=== PATIENT | female | born 1980 | race Caucasian/White ===

== ENCOUNTER 2021-11-01 08:24 | Emergency (ER) | payer BC, SELFPAY ==
[2021-11-01 08:36] VITALS: BP 118/79; PULSE 71; RESP 20; TEMP 36.8; O2SAT 99
--- NOTE | 2021-11-01 09:06 | ED.EAR ---
HPI - Ear Problem General Chief complaint: Ear Stated complaint: Ear Pain Time Seen by Provider: 11/01/21 09:06 Source: patient Mode of arrival: ambulatory Limitations: no limitations History of Present Illness HPI Narrative: 41-year-old female presenting for complaint of right ear pain for 3 days. She endorses associated sinus pressure and congestion, and hoarse voice starting this morning. Pain is described as sharp and shooting, 7/10, intermittent. She has been taking Motrin and Sudafed. She takes daily Zyrtec. She denies tenderness, headache or dizziness, nausea, fevers or chills. MD Complaint: ear pain Related Data Allergies Allergy/AdvReac Type Severity Reaction Status Date / Time amoxicillin Allergy Unknown Swelling Verified 11/01/21 08:57 of Lip/Tongue/Throat Penicillins Allergy Unknown Swelling Verified 11/01/21 08:57 of Lip/Tongue/Throat Review of Systems Review of Systems: CONSTITUTIONAL: Denies malaise, chills, or fever. EYES: Denies visual changes, redness, or discharge. ENT: Denies sinus pain, sore throat. Reports ear pain, rhinorrhea, congestion CARDIOVASCULAR: Denies chest pain, palpitations, or edema. RESPIRATORY: Denies cough or dyspnea. GASTROINTESTINAL: Denies abdominal pain, nausea, vomiting, diarrhea SKIN: Denies rash or itching. MUSCULOSKELETAL: Denies myalgia. NEUROLOGIC: Denies headache. All systems reviewed & are unremarkable except as noted in HPI and below PMFSH Comments At time of signature, agree with nursing past medical, surgical, social and family history. There is no relevant family history pertinent to the presenting complaint Exam Narrative: GENERAL: Well-appearing EYES: conjunctivae clear ENT: Nares clear. Mucous membranes moist. Right canal erythematous, TM bulging and erythematous with dull reflex, mild tragal tenderness, left TM pearly tomlin with normal light reflex, Oropharynx not erythematous. Hoarse voice, tonsils chronically enlarged and without exudate, no drooling, no trismus, uvula midline. NECK: Supple. No lymphadenopathy CHEST: Clear to auscultation, breath sounds equal. No wheezing, rhonchi, rales, or stridor. No respiratory distress, speaks in full sentences. HEART: Regular rate and rhythm. No murmur heard. SKIN: Warm, dry, no rash. NEURO: Alert and oriented x3. PSYCH: Normal mood and affect Course Course Emergency Course: Patient is aware of diagnosis, understands and agrees to treatment plan. Anticipatory guidance given. Patient agrees to follow-up as directed and is aware of reasons to seek care at the emergency department. Portions of this record may have been created with voice recognition software Level of Care: Express Care Visit Vital Signs Vital signs: Vital Signs Temperature 98.3 F 11/01/21 08:36 Pulse Rate 71 11/01/21 08:36 Respiratory Rate 20 11/01/21 08:36 Blood Pressure 118/79 11/01/21 08:36 Pulse Oximetry 99 11/01/21 08:36 Oxygen Delivery Room Air 11/01/21 08:36 Temperature 98.3 F 11/01/21 08:36 Pulse Rate 71 11/01/21 08:36 Respiratory Rate 20 11/01/21 08:36 Blood Pressure 118/79 11/01/21 08:36 Pulse Oximetry 99 11/01/21 08:36 Oxygen Delivery Room Air 11/01/21 08:36 Reviewed Medical Decision Making MDM Narrative Medical decision making narrative: patient is non-toxic appearing and is in no distress. Patient is appropriate for outpatient treatment and follow-up. Differential Diagnosis Differential Diagnosis: allergic rhinitis, upper respiratory tract infection, sinusitis, rhinosinusitis, nasopharyngitis, viral pharyngitis, otitis media, otitis externa, eustachian tube dysfunction, foreign body, cerumen impaction. Vital Signs Vital Signs: Vital Signs Temperature 98.3 F 11/01/21 08:36 Pulse Rate 71 11/01/21 08:36 Respiratory Rate 20 11/01/21 08:36 Blood Pressure 118/79 11/01/21 08:36 Pulse Oximetry 99 11/01/21 08:36 Oxygen Delivery Room Air 07/
== END 2021-11-01 09:18 | disposition home or self-care (01) ==
PROVIDERS: Emergency Provider Nurse Practitioner Family
DX: H66.001 Acute suppurative otitis media without spontaneous rupture of ear drum, right ear (principal); F41.9 Anxiety disorder, unspecified
CPT/HCPCS: 99203; G0463

== ENCOUNTER 2022-12-20 18:40 | Emergency (ER) | payer BC, SELFPAY ==
--- NOTE | 2022-12-20 18:49 | ED.URI ---
HPI - URI/Sore Throat General Chief Complaint: Upper Respiratory Infection Stated Complaint: sore throat,raspy,rt ear hurts Source: patient and RN notes reviewed History of Present Illness HPI Narrative: 42 yo F presents to urgent care with complaints of right ear pain, sore/scratchy throat, hoarse voice, and runny nose since . Pt denies any chest pain, SOB, fevers, chills, vomiting, or diarrhea. Related Data Home Medications Medication Instructions Recorded Confirmed No Home Medications 12/20/22 12/20/22 Allergies Allergy/AdvReac Type Severity Reaction Status Date / Time amoxicillin Allergy Unknown Swelling Verified 12/20/22 19:02 of Lip/Tongue/Throat Penicillins Allergy Unknown Swelling Verified 12/20/22 19:02 of Lip/Tongue/Throat Review of Systems Review of Systems: Pertinent positives and pertinent negatives per HPI. [facility] Surgical History Surgical History (Updated 10/29/22 @ 08:19 by Bina Vega CMA) S/P gastric sleeve procedure Social History Social History (Updated 10/29/22 @ 08:19 by Bina Vega [facility]) Smoking status: Never smoker Alcohol intake: never Substance use: never Lack of Transportation: No Lack of Food: Never True Current Housing: I Have Housing Concerned About Future Housing: No Difficulty Paying Gas/Electric Bills: No Difficulty Paying for Meds: No Currently Unemployed: No Education: High School Diploma/GED Difficulty w/ Childcare or Family Care: No Living arrangements: alone Occupation/Education: occupation Additional occupation/education comments: [employer] Comments At the time of my signature, I reviewed and agree with the nursing past medical, surgical, social, and family history. There is no relevant family history pertinent to the patient complaint. Exam Narrative: GENERAL: This is a well-nourished, well-developed patient, in no apparent distress. HEAD: normocephalic, atraumatic. EYES: Sclera clear/white. Vision is grossly intact. EARS: External ears normal, auditory canals clear and without drainage, TMs erythremic, not bulging without perforation. Hearing grossly intact. NOSE: External nose normal with no obvious nasal discharge, nares without redness, no rhinorrhea. THROAT: Mucous membranes moist, posterior pharynx clear. Tonsils 1+ bilaterally. NECK: Neck supple, non-tender without lymphadenopathy, masses or thyromegaly. CARDIOVASCULAR: Regular rate and rhythm without murmurs, gallops, or rubs. RESPIRATORY: Clear to auscultation. Breath sounds equal bilaterally. No wheezes, rales, or rhonchi. SKIN: warm, intact with no suspicious lesions or rash, good texture and turgor. NEURO: awake, alert, and oriented to person, place and time. There were no obvious focal neurologic abnormalities. Course Course Level of Care: Express Care Visit Vital Signs Vital signs: Vital Signs Temperature 97.6 F 12/20/22 18:55 Pulse Rate 82 12/20/22 18:55 Respiratory Rate 18 12/20/22 18:55 Blood Pressure 113/58 L 12/20/22 18:55 Pulse Oximetry 100 12/20/22 18:55 Oxygen Delivery Room Air 12/20/22 18:55 Temperature 97.6 F 12/20/22 18:55 Pulse Rate 82 12/20/22 18:55 Respiratory Rate 18 12/20/22 18:55 Blood Pressure 113/58 L 12/20/22 18:55 Pulse Oximetry 100 12/20/22 18:55 Oxygen Delivery Room Air 12/20/22 18:55 Reviewed MDM - URI/Sore Throat MDM Narrative Medical decision making narrative: Rapid strep is negative in the office; however we will send to the lab for confirmation; there is a small percentage chance that it can come back positive; if it is, we will call you in 2-3days; and your prescription will be call in to your pharmacy. However, there is NO indication for antibiotic at this time. -Increase your fluids and Vitamin C. -Oral rinses such as: Salt water gargles and/or may use topical anesthetic (eg. Chloraseptic spray) or lozenges to re
[2022-12-20 18:55] VITALS: BP 113/58; PULSE 82; RESP 18; TEMP 36.4; O2SAT 100
== END 2022-12-20 19:40 | disposition home or self-care (01) ==
PROVIDERS: Emergency Provider Nurse Practitioner Family
DX: B34.9 Viral infection, unspecified (principal); J02.9 Acute pharyngitis, unspecified; Z98.84 Bariatric surgery status
CPT/HCPCS: 87081; 87880; 99213; G0463

== ENCOUNTER 2023-06-24 12:42 | Emergency (ER) | payer BC, SELFPAY ==
--- NOTE | 2023-06-24 12:55 | ED.GENADULT ---
HPI - General Adult General Chief complaint: Dizziness Stated complaint: Dizziness/Nausea Time Seen by Provider: 06/24/23 12:55 Source: patient, RN notes reviewed and old records reviewed Mode of arrival: ambulatory Limitations: no limitations History of Present Illness HPI narrative: 43-year-old female presents to the [facility] with complaints of intermittent positional dizziness. Sometimes gets dizzy when she stands up. Also reports nausea. Had 1 episode of diarrhea today. Has taken Tylenol and a dose of Imodium. Symptoms started on Wednesday, states that she slept yesterday. Denies headaches, blurry vision. No numbness or tingling in extremities. Currently no dizziness. Denies abdominal pain or chest pain. Reports fatigue yesterday States that she called her primary care provider in [place] was told seek care at an Urgent Care, here to ?appease her primary. Onset (ago): day(s) (2) Treatments prior to arrival: other (Tylenol, Imodium) Related Data Allergies Allergy/AdvReac Type Severity Reaction Status Date / Time amoxicillin Allergy Unknown Swelling Verified 06/24/23 12:55 of Lip/Tongue/Throat Penicillins Allergy Unknown Swelling Verified 06/24/23 12:55 of Lip/Tongue/Throat Review of Systems Review of Systems: All systems reviewed & are unremarkable except as noted in HPI and below Constitutional: Constitutional: Reports as per HPI and Reports fatigue Eyes: Eyes: Reports no additional eye complaints ENT: Reports system reviewed and no additional complaints, except as documented Cardiovascular: Cardiovascular: Reports no additional cardiovascular complaints, Denies chest pain and Denies dyspnea Respiratory: Respiratory: Reports no additional respiratory complaints, Denies chest congestion, Denies cough and Denies dyspnea Gastrointestinal: Gastrointestinal: Reports as per HPI, Denies abdominal pain, Reports nausea and Denies vomiting Musculoskeletal: Musculoskeletal: Reports no additional musculoskeletal complaints Integumentary/Breasts: Skin/Breast: Reports system reviewed and no additional complaints, except as docu Neurologic: Reports system reviewed and no additional complaints, except as documented Psychiatric: Psychiatric: Reports no additional psychiatric complaints Allergic/Immunologic: Allergic/Immunologic: Reports no additional allergic/immunologic complaints [facility] Surgical History Surgical History (Updated 06/24/23 @ 13:01 by Genoveva Nuñez, GAURAV) H/O: hysterectomy S/P gastric sleeve procedure Social History Social History (Reviewed 06/24/23 @ 13:01 by RENETTA Romero Smoking status: Never smoker Alcohol intake: never Substance use: never Lack of Transportation: No Lack of Food: Never True Current Housing: I Have Housing Concerned About Future Housing: No Difficulty Paying Gas/Electric Bills: No Difficulty Paying for Meds: No Currently Unemployed: No Education: High School Diploma/GED Difficulty w/ Childcare or Family Care: No Living arrangements: alone Occupation/Education: occupation Additional occupation/education comments: [employer] Comments At the time of my signature, I reviewed and agree with the nursing past medical, surgical, social, and family history. There is no relevant family history pertinent to the patient complaint. Exam Const: General: cooperative, healthy appearing, comfortable, no acute distress, well developed, alert and well nourished Nutritional Appearance: well nourished and obese morbidly obese Orientation/consciousness: patient oriented x3 Limitations: no limitations HENMT: Head: normal to inspection Ears: hearing grossly normal bilaterally, external ears normal, TM's normal bilaterally, EAC's normal, mastoids normal and no periauricular adenopathy Face/Nose/Sinus: Normal external nose present, Normal nares present, Normal nasal mucous membranes and turbinates present, normal fac
[2023-06-24 13:00] VITALS: BP 148/78; PULSE 96; RESP 16; TEMP 36.9; O2SAT 100
== END 2023-06-24 13:36 | disposition home or self-care (01) ==
PROVIDERS: Emergency Provider Nurse Practitioner
DX: R42 Dizziness and giddiness (principal); R11.0 Nausea; Z20.822 Contact with and (suspected) exposure to COVID-19
CPT/HCPCS: 87426; 87804; 99213; G0463

== ENCOUNTER 2024-03-16 15:29 | Emergency (ER) | payer BC, SELFPAY ==
--- NOTE | ~2024-03-16 | XR_ITS ---
CHEST RADIOGRAPH, PA AND LATERAL CLINICAL HISTORY: cough 4 days; crackles R mid lung . COMPARISON: None available TECHNIQUE: PA and lateral views of the chest. FINDINGS The cardiomediastinal silhouette is unremarkable. Increased interstitial markings detected within the right mid to lower lung field, possibly represent ing an early infiltrate for which clinical correlation is needed. The remainder of the lungs are clear. Visualized osseous structures and soft tissues are unremarkable. IMPRESSION: Possible early infiltrate within the superior segment of the right lower lobe, for which clinical cor relation is needed. Reviewed, dictated and finalized at location A. [employer] IMPRESSION: Possible early infiltrate within the superior segment of the right lower lobe, for which clinical correlation is needed.
[2024-03-16 15:49] VITALS: BP 130/87; PULSE 97; RESP 16; TEMP 36.8; O2SAT 99
--- NOTE | 2024-03-16 16:07 | ED_ITS ---
HPI - URI/Sore Throat General Chief Complaint: Upper Respiratory Infection Stated Complaint: Cough Time Seen by Provider: 03/16/24 16:07 Source: patient, RN notes reviewed and old records reviewed Mode of arrival: ambulatory Limitations: no limitations History of Present Illness HPI Narrative: 43-year-old female to Express Care with complaint cough since Wednesday. Patient reports occasional wheezing with difficulty taking a deep breath at times. Patient also endorses sore throat from coughing as well as postnasal drainage. Patient able to tolerate fluids by mouth. Patient resting comfortably in exam room in no acute distress. Respirations even and nonlabored. Patient able speak in complete sentences without difficulty. Related Data Home Medications Medication Instructions Recorded Confirmed ergocalciferol (vitamin D2) 1,250 1,250 unit PO DAILY 03/16/24 03/16/24 mcg (50,000 unit) capsule hydrochlorothiazide 12.5 mg capsule 12.5 mg PO DAILY 03/16/24 03/16/24 Allergies Allergy/AdvReac Type Severity Reaction Status Date / Time amoxicillin Allergy Unknown Swelling Verified 06/24/23 12:55 of Lip/Tongue/Throat Penicillins Allergy Unknown Swelling Verified 06/24/23 12:55 of Lip/Tongue/Throat Review of Systems Review of Systems: All systems reviewed & are unremarkable except as noted in HPI and below Constitutional: Constitutional: Reports no additional constitutional complaints Eyes: Eyes: Reports no additional eye complaints ENT: Reports as per HPI, Reports post nasal drip and Reports sore throat Cardiovascular: Cardiovascular: Reports no additional cardiovascular complaints, Denies chest pain and Denies dyspnea Respiratory: Respiratory: Reports no additional respiratory complaints, Reports cough, Denies dyspnea and Reports wheezing Musculoskeletal: Musculoskeletal: Reports no additional musculoskeletal complaints Neurologic: Reports system reviewed and no additional complaints, except as documented Psychiatric: Psychiatric: Reports no additional psychiatric complaints [facility] Surgical History Surgical History H/O: hysterectomy S/P gastric sleeve procedure Social History Social History Smoking status: Never smoker Alcohol intake: never Substance use: never Lack of Transportation: No Lack of Food: Never True Current Housing: I Have Housing Concerned About Future Housing: No Difficulty Paying Gas/Electric Bills: No Difficulty Paying for Meds: No Currently Unemployed: No Education: High School Diploma/GED Difficulty w/ Childcare or Family Care: No Living arrangements: alone Occupation/Education: occupation Additional occupation/education comments: [employer] Comments At the time of my signature, I reviewed and agree with the nursing past medical, surgical, social, and family history. There is no relevant family history pertinent to the patient complaint. Exam Const: General: cooperative, comfortable, no acute distress, well developed, alert, tired appearing, well groomed and well nourished Nutritional Appearance: well nourished Orientation/consciousness: patient oriented x3 Limitations: no limitations HENMT: Head: normal to inspection Ears: external ears normal Face/Nose/Sinus: Normal external nose present, Normal nares present, normal facial exam, No erythema and No edema Face and sinus: normal facial exam, no erythema and no edema Mouth: Yes Normal oral and palatal mucosa present Throat: posterior oropharynx abnormal erythema and postnasal drainage Eyes: General: appearance normal, both eyes and all related structures Neck: Neck: normal visual inspection, full ROM and no meningeal signs Lymphatic: no lymphadenopathy noted and no lymphedema noted Chest: Chest palpation & inspection: normal inspection of the chest Resp: Effort & Inspection: normal respiratory effort and able to speak in complete sentences Cardio: Jugular venous distension: no JVD Rate: regular rate Rhythm: regular rhythm Back/Spine/Pelvis: Cervical Spine: cervical ROM normal Skin: General skin exam: normal color, no rashes or lesions noted and turgor normal Neuro: General: patient oriented x3, gait normal, moves all extremities and no meningeal signs Speech: normal speech Gait exam (Neuro): Normal gait present Extrem: General: normal to inspection, full ROM and capillary refill normal Psych: Appearance: grossly normal and well kempt Course Course Emergency Course: Some parts of this dictation were generated by voice recognition software and may contain typographical and/or grammatical inaccuracies. Level of Care: Express Care Visit Vital Signs Vital signs: Vital Signs Temperature 36.8 C 03/16/24 15:49 Pulse Rate 97 03/16/24 15:49 Respiratory Rate 16 03/16/24 15:49 Blood Pressure 130/87 03/16/24 15:49 Pulse Oximetry 99 03/16/24 15:49 Oxygen Delivery Room Air 03/16/24 15:49 Temperature 36.8 C 03/16/24 15:49 Pulse Rate 97 03/16/24 15:49 Respiratory Rate 16 03/16/24 15:49 Blood Pressure 130/87 03/16/24 15:49 Pulse Oximetry 99 03/16/24 15:49 Oxygen Delivery Room Air 03/16/24 15:49 reviewed MDM - URI/Sore Throat MDM Narrative Medical decision making narrative: 43-year-old female to Express Care with complaint cough since Wednesday. Patient reports occasional wheezing with difficulty taking a deep breath at times. Patient also endorses sore throat from coughing as well as postnasal drainage. Patient able to tolerate fluids by mouth. Patient resting comfortably in exam room in no acute distress. Respirations even and nonlabored. Patient able speak in complete sentences without difficulty. On exam, posterior oropharynx erythematous with postnasal drainage. Auscultation of right mid lung with crackles present. Exam otherwise unremarkable. Patient negative for strep in clinic. Culture sent. Radiology impression:Possible early infiltrate within the superior segment of the right lower lobe, for which clinical correlation is needed Patient is sitting comfortably in exam room nontoxic in appearance. Patient appropriate for outpatient treatment and follow-up. Discharge instructions reviewed with patient, as well as provided in writing per nursing staff. The instructions also include specific and strict return/GO TO THE ER as well as f/u information. All questions have been answered, and the patient deny any further questions with discharge and discharge plan. Some parts of this dictation were generated by voice recognition software and may contain typographical and/or grammatical inaccuracies. Differential Diagnosis Differential diagnosis: Likely upper respiratory infection, croup, otitis media, sinusitis, viral infection, bronchitis, influenza and pharyngitis Lab Data Labs: Lab Results 03/16/24 Range/Units 17:31 POC Grp A Strep Screen Negative (Negative) Imaging Data Radiologist's impression: CHEST RADIOGRAPH, PA AND LATERAL CLINICAL HISTORY: cough 4 days; crackles R mid lung . COMPARISON: None available TECHNIQUE: PA and lateral views of the chest. FINDINGS The cardiomediastinal silhouette is unremarkable. Increased interstitial markings detected within the right mid to lower lung field, possibly representing an early infiltrate for which clinical correlation is needed. The remainder of the lungs are clear. Visualized osseous structures and soft tissues are unremarkable. IMPRESSION: Possible early infiltrate within the superior segment of the right lower lobe, for which clinical correlation is needed. Discharge Plan Discharge Clinical Impression: Pneumonia Patient Disposition: Home, Self-Care Condition: Stable Instructions: Pneumonia (ED) Additional Instructions: -Alternate Tylenol and Motrin per package directions for fever or pain. -Antihistamine medication such as Benadryl at night and Zyrtec/Claritin/Kristine during the day can help improve symptoms. -Use Flonase twice a day for 5 days then daily to help reduce the inflammation and dry up your sinuses. -You can also use Sudafed or Mucinex. Be sure to drink plenty of water with these medications at least 8 ounces with every dose and it is important to drink 8 to 10 glasses of water per day. Water is a natural decongestant -Eat and drink things that are easy to swallow, like tea or soup, or popsicles. -Oral rinses such as: Salt water gargles and/or may use topical anesthetic (eg. Chloraseptic spray) or lozenges to relieve dryness or throat pain). -Frequent hand washing or hand data specialist is one of the best ways to prevent spread of infection. -Using a vaporizer or humidifier at night will also help thin secretions and help with coughing up phlegm. -Follow up with primary care provider in 2-3 days if condition is not improving; or seek ER visit if you have trouble breathing, cannot drink enough fluids, have muffled voice, difficulty opening your mouth, or severe swelling. Prescriptions: New azithromycin 250 mg tablet 250 mg PO DAILY Qty: 6 0RF Rx Instructions: 250 mg orally. Take TWO tablets today, then one tablet daily for 4 days. No Action hydrochlorothiazide 12.5 mg capsule 12.5 mg PO DAILY ergocalciferol (vitamin D2) 1,250 mcg (50,000 unit) capsule 1,250 unit PO DAILY Follow-up/Referrals: PHYSICIAN NOT ON STAFF,NONSTAFF [Primary Care Provider] - Stand Alone Forms: Work/School Release IP
[2024-03-16 17:34] LABS: EDSTREPNEGPOS1 Negative (Negative)
== END 2024-03-16 17:23 | disposition home or self-care (01) ==
PROVIDERS: Emergency Provider Nurse Practitioner Family
DX: J18.9 Pneumonia, unspecified organism (principal)
CPT/HCPCS: 71046; 87081; 87880; 99213; G0463

== ENCOUNTER 2024-05-31 08:01 | Emergency (ER) | payer BC, SELFPAY ==
[2024-05-31 08:05] VITALS: BP 139/57; PULSE 93; RESP 20; TEMP 37.2; O2SAT 97
--- NOTE | 2024-05-31 08:08 | ED.URI ---
HPI - URI/Sore Throat General Chief Complaint: Upper Respiratory Infection Stated Complaint: congestion/cough Time Seen by Provider: 05/31/24 08:09 Source: patient, RN notes reviewed and old records reviewed Mode of arrival: ambulatory Limitations: no limitations History of Present Illness HPI Narrative: 43-year-old woman presents to [facility] with complaints of 1 week duration of cough which is productive of green mucus and has noted some wheezing.Patient reports that she has coughed so much and so hard that she has pain to her core. Patient did call her doctor and was put on some steroids and did receive some Tessalon Perles also.Patient reports that she has been taking Mucinex also for her symptoms. Patient reports that she has felt hot and cold but unknown if fevers. MD elicited complaint: cough Onset (ago): week(s) (1) Consistency: constant Pain scale (0-10): 7 Description of mucous: green Able to tolerate fluids by mouth: Yes Treatments prior to arrival: other (steroids and Tesslon Perles, Mucinex) Related Data Home Medications ?Medication ?Instructions ?Recorded ?Confirmed ?Last Taken ?Type ergocalciferol (vitamin D2) 1,250 1,250 unit PO DAILY 03/16/24 03/16/24 Unknown History mcg (50,000 unit) capsule hydrochlorothiazide 12.5 mg capsule 12.5 mg PO DAILY 03/16/24 03/16/24 Unknown History benzonatate 200 mg capsule mg PO 05/31/24 Unknown History methylprednisolone 4 mg tablets in mg 05/31/24 Unknown History a dose pack Allergies Allergy/AdvReac Type Severity Reaction Status Date / Time amoxicillin Allergy Unknown Swelling Verified 06/24/23 12:55 of Lip/Tongue/Throat Penicillins Allergy Unknown Swelling Verified 06/24/23 12:55 of Lip/Tongue/Throat Review of Systems Review of Systems: CONSTITUTIONAL: Reports malaise, chills, sweats, or fever. EYES: Denies visual changes, redness, or discharge. ENT: Reports rhinorrhea, congestion,no sinus pain, no otalgia and no sore throat. CARDIOVASCULAR: Denies chest pain, palpitations, or edema. RESPIRATORY: Reports productive cough.? Denies dyspnea. GASTROINTESTINAL: Denies abdominal pain, nausea, vomiting, diarrhea SKIN: Denies rash or itching. MUSCULOSKELETAL: reports generalized myalgia exacerbated by cough NEUROLOGIC: Denies headache. All systems reviewed & are unremarkable except as noted in HPI and below PMFSH Past Medical History Medical History (Updated 05/31/24 @ 08:26 by Qi Hess NP) Bronchitis Surgical History Surgical History (Updated 05/31/24 @ 08:21 by Qi Hess NP) H/O hernia repair H/O: hysterectomy S/P gastric sleeve procedure Social History Social History Smoking status: Never smoker Alcohol intake: never Substance use: never Lack of Transportation: No Lack of Food: Never True Current Housing: I Have Housing Concerned About Future Housing: No Difficulty Paying Gas/Electric Bills: No Difficulty Paying for Meds: No Currently Unemployed: No Education: High School Diploma/GED Difficulty w/ Childcare or Family Care: No Living arrangements: alone Occupation/Education: occupation Additional occupation/education comments: [employer] Comments At time of signature, agree with nursing past medical, surgical, social and family history. There is no relevant family history pertinent to the presenting complaint Exam Narrative: GENERAL: Well-appearing, well-nourished,obese, and in no acute distress. HEAD: Normocephalic EYES: PERRLA, conjunctivae clear ENT: Nares clear, turbinates edematous and erythematous, clear discharge. Mucous membranes moist. TM pearly tomlin with dull light reflex bilaterally; no tragal tenderness. Oropharynx erythematous without lesions. Tonsils not enlarged and without exudate, no drooling, no hoarseness, no trismus, uvula midline.post nasal drainage. NECK: Supple. No lymphadenopathy CHEST: Expiratory wheezing on auscultation, breath sounds equal. + wheezing,no rhonchi, rales, or stridor. No respiratory distress, speaks in full sentences.productive cough, SAO2 97% on room air HEART: Regular rate and rhythm. No murmur heard. SKIN: Warm, dry, no rash. NEURO: Alert and oriented x3. PSYCH: Normal mood and affect Course Course Emergency Course: Patient is aware of diagnosis, understands and agrees to treatment plan.? Anticipatory guidance given.? Patient agrees to follow-up as directed and is aware of reasons to seek care at the emergency department. Portions of this record may have been created with voice recognition software Level of Care: Express Care Visit Vital Signs Vital signs: Vital Signs Temperature 37.2 C 05/31/24 08:05 Pulse Rate 93 05/31/24 08:05 Respiratory Rate 20 05/31/24 08:05 Blood Pressure 139/57 L 05/31/24 08:05 Pulse Oximetry 97 05/31/24 08:05 Oxygen Delivery Room Air 05/31/24 08:05 Temperature 37.2 C 05/31/24 08:05 Pulse Rate 93 05/31/24 08:05 Respiratory Rate 20 05/31/24 08:05 Blood Pressure 139/57 L 05/31/24 08:05 Pulse Oximetry 97 05/31/24 08:05 Oxygen Delivery Room Air 05/31/24 08:05 Reviewed MDM - URI/Sore Throat MDM Narrative Medical decision making narrative: Differential diagnosis considered: Rivera virus, strep pharyngitis, allergic rhinitis, upper respiratory tract infection, sinusitis, rhinosinusitis, nasopharyngitis. viral pharyngitis, otitis media, otitis externa, pneumonia, bronchitis, viral cough syndrome, viral syndrome, and influenza.? Exam findings show no acute concerns or changes; patient is non-toxic appearing and is in no distress.? Patient is appropriate for outpatient treatment and follow-up. Differential Diagnosis Differential diagnosis: Likely upper respiratory infection, sinusitis, viral infection, bronchitis and other (acute cough) Medical Records Attestation: I reviewed the patient's medical records. Lab Data Attestation: I reviewed the patient's lab results. Critical Care Time Critical Care Time Critical Care Time: No Discharge Plan Discharge Clinical Impression: Bronchitis Patient Disposition: Home, Self-Care Condition: Stable Instructions: Antibiotic Form, Acute Bronchitis (ED) Additional Instructions: Increase fluids especially juices and water [id number]-xaqkkno cough and cold medicine of your choice for your symptoms Mucinex daily make sure you are drinking plenty of fluids while taking this medication Cough tablets as directed for cough--do not bite, chew or suck on--swallow whole Continue your inhaler/nebulizer as directed Steroids as directed--take with food Tylenol or Ibuprofen for any fever or pain heat to the face 20-30 minutes 4-6 times a day for pain Salt water gargles, throat lozenges or throat sprays as desired Antibiotic as directed--finished the medication If your symptoms persist, change or worsen significantly before you can contact your personal physician then please, without delay, go to the emergency department for further evaluation. Follow-up with PCP in 7-10 days or sooner if needed Follow up with PCP soon in regards to your blood pressure which is elevated above threshold for referral. Blood pressure above 120/80 may indicate pre-hypertension. 139/57 Patient Language: Luxembourgish Prescriptions: New prednisone 20 mg tablet 40 mg PO DAILY 5 Days Qty: 10 0RF azithromycin 500 mg tablet 500 mg PO DAILY 5 Days Qty: 5 0RF albuterol sulfate [Ventolin HFA] 90 mcg/actuation HFA aerosol inhaler 2 puff inhalation QID PRN (Reason: shortness of breath or wheezing) Qty: 6.7 0RF Rx Instructions: whatever brand which is covered by her insurance No Action hydrochlorothiazide 12.5 mg capsule 12.5 mg PO DAILY ergocalciferol (vitamin D2) 1,250 mcg (50,000 unit) capsule 1,250 unit PO DAILY benzonatate 200 mg capsule PO methylprednisolone 4 mg tablets,dose pack Follow-up/Referrals: PHYSICIAN NOT ON STAFF,NONSTAFF [Primary Care Provider] - Time of Disposition: 08:28 Quality Howe Coma Scale Eyes: Open Verbal: Oriented and Alert Motor: Follows Commands Zeeshan Coma Total Score: 15
--- OUTSIDE RECORDS SUMMARY | 2024-05-31 08:15 | XMS_ITS | Encounter Summary ---
Author Organization [facility] Address [address] [place] [address] Care Team Providers Care Linotype Worker Name Role Phone Elisabeth Self MD Primary Care Provider + Reason for Visit * Reason Comments Needs Appointment Encounter Details Date Type Department Care Team ([facility] st Contact Info) Description 06/16/2023 Telephone [facility] Primary Care [address] [phone] Elisabeth Self MD [address] [place] [phone] Needs Appointment Social History Tobacco Use Types Packs/Day Years Used Date Smoking Tobacco: Never Smokeless Tobacco: Never Alcohol Use Standard Drinks/Week Comments Not Currently 0 (1 standard drink = 0.6 oz pur e alcohol) Comments No Sex and Gender Information Value Date Recorded Sex Assigned at Female 05/25/2024 8:46 AM WRINKLE CHASER Legal Sex Female 11:03 AM CDT Gender Identity Female 05/25/2024 8:46 AM WRINKLE CHASER Sexual Orientation Not on file documented as of this encounter Miscellaneous Notes * Telephone Encounter - Beatrice Mcgraw RN - 06/17/2023 9:13 AM WRINKLE CHASER I'm unsure of what labs will be due for her. KLE CHASER * Telephone Encounter - Rosario Vasques - 06/16/2023 2:46 PM CST Copied from CRM #[id number]. Topic: Preventative Care >> Jun 16, 2023 2:43 PM Rosario Guo wrote: Caller is requesting preventative care appointment for: Physical Established [232] <<< Schedule Appointment >>> Call Notes: Patient also want to included labs. Patient also is requesting for an sooner appt.before November 03, 2023 Please advise [phone] (home) <<< Select Resolve Reason and Click Close CRM. >>> KLE CHASER documented in this encounter Plan of Treatment Upcoming Encounters Date Type Department Care Team (Late st Contact Info) Description 08/28/2024 9:20 AM CDT Office Visit [facility] Primary Care [address] [phone] Elisabeth Self MD [address] [place] [phone] documented as of this encounter Visit Diagnoses Not on filedocumented in this encounter Care Teams Linotype Worker Relationship Specialty Start Date End Date Elisabeth Self MD [address] [place] [phone] PCP - General Family Practice 01/27/21 documented as of this encounter
--- OUTSIDE RECORDS SUMMARY | 2024-05-31 08:15 | XMS_ITS | Encounter Summary ---
Author Organization [facility] Address [address] [place] [address] Care Team Providers Care Clinical Investigator Name Role Phone Elisabeth Self MD Primary Care Provider + Encounter Details Date Type Department Care Team (Late st Contact Info) Description 10/03/2012 Telephone [facility] - Diabetes Education [address] [place] [phone] Charisma Bonilla, RN Social History Tobacco Use Types Packs/Day Years Used Date Smoking Tobacco: Never Smokeless Tobacco: Never Alcohol Use Standard Drinks/Week Comments No 0 (1 standard drink = 0.6 oz pur e alcohol) Comments Yes Sex and Gender Information Value Date Recorded Sex Assigned at Not on file Gender Identity Not on file Sexual Orientation Not on file documented as of this encounter Consult Notes * Charisma Bonilla, RN - 10/03/2012 8:39 AM CDT Diabetes Education Pt faxed in detailed food and BS logs Fasting BS are in range PP overall in range several 140- 150's Pt taking NPH 40 units @ HS Pt is to be seen this week in [facility] BS reviewed by Dr. López - no new orders @ this time Charisma Bonilla RN, CDE documented in this encounter Plan of Treatment Not on file documented as of this encounter Visit Diagnoses Not on filedocumented in this encounter Care Teams Clinical Investigator Relationship Specialty Start Date End Date Elisabeth Self MD PCP - General Family Medicine 07/13/12 documented as of this encounter
--- OUTSIDE RECORDS SUMMARY | 2024-05-31 08:15 | XMS_ITS | Clinical Summary ---
Author Organization [facility] Address [address] [place] [address] Care Team Providers Care Automatic Lehr Operator Name Role Phone Elisabeth Self MD Primary Care Provider + Source Comments [facility],non-owned Affiliates and Associated Physician Practices is amultiple site organization consisting of ambulatory clinics and hospital sitesin [place], [place], [place] and [place]. This disclosure is being madepursuant to the Care Everywhere program and may not contain all information available regarding this patient. Last updated 18.[facility] Allergies No known active allergies Medications * Be aware that medications may not be up to date on this document. Alwaysverify current medications with the patient. Medication Sig Dispensed Refills Start Date End Date Status Vit-Fe Fumarate-FA ( VITAMIN) 28-0.8 MG tabletIndications:Pr egnancy Take 1 Tab by mouth once daily. Indications: 30 Tab 3 10/31/2012 Active ibuprofen (MOTRIN) 600 MG tablet Take 1 Tab by mouth every 6 hours as needed for Pain. 60 Tab 3 10/31/2012 Active docusate sodium (COLACE) 100 MG capsule Take 1 Cap by mouth 2 times daily. 60 Cap 1 10/31/2012 Active norgestimate-ethinyl estradiol (ORTHO-CYCLEN, 28,) 0.25-35 MG-MCG tablet Take 1 Tab by mouth once daily. 1 Packet 11 12/19/2012 Active Active Problems Patient Care Coordination No te Formatting of this note migh t be different from the original. Diabetic Problem Noted Date Diagnosed Date Gestational diabetes mellitus in 09/09 Overview (10/28/2012): Growth US q 3-4 weeks. EFW: 3435g (71%) on 10/27/12 Kidney stones 07/13/2012 Overview (07/13/2012): H/o Supervision of other high-risk 013 Overview (03/10/2015): GERARDO from Dr. Max for Fibroids O+I/-/-, NR H/H/plt: 13.1/39.1/231 QS: neg Varicella: immune CF: neg GBS neg Obesity 07/01/2012 Uterine fibroid 07/01/2012 Overview (07/13/2012): 06.13.12- US at [facility] = 8.5 x 10 x 8.2 cm. 07/01/2012: Two fibroids were noted: one right lateral measuring 10.3 x 10.1 x 8.0cm and the other right, posterior measuring 4.7 x 3.4 x 4.4cm. Immunizations Name Administration Dates Next Due TDAP (7yrs+) 10/30/2012 Family History Medical History Relation Name Comments Arthritis Father Diabetes Father Arthritis Maternal Grandmother Cancer Maternal Grandmother bladder Clotting Disorder Maternal Grandmother bl ood clots Diabetes Maternal Grandmother Arthritis Mother Cancer Mother hx of skin canc er Diabetes Mother Twins Other Pat cousin Cancer Paternal Grandfather prostat e Arthritis Paternal Grandmother Diabetes Paternal Grandmother Cancer Paternal Uncle esphogeal Diabetes Sister Bleeding Disorders Neg Hx Genetic/Metabolic Disease Neg Hx Heart Disease Neg Hx Hypertension Neg Hx Kidney Disease Neg Hx Multiple Births Neg Hx Labor Neg Hx Sickle Cell Anemia Neg Hx Stroke Neg Hx Toxemia Neg Hx Tuberculosis Neg Hx Relation Name Status Comments Father Alive Maternal Grandmother Mother Alive Other Pat cousin Alive Paternal Grandfather Paternal Grandmother Paternal Uncle Sister Alive Social History Tobacco Use Types Packs/Day Years Used Date Smoking Tobacco: Never Smokeless Tobacco: Never Alcohol Use Standard Drinks/Week Comments No 0 (1 standard drink = 0.6 oz pur e alcohol) Sex and Gender Information Value Date Recorded Sex Assigned at Not on file Gender Identity Not on file Sexual Orientation Not on file Last Filed Vital Signs Vital Sign Reading Time Taken Comments Blood Pressure 110/74 12/19/2012 8:32 AM CDT Pulse 90 10/31/2012 7:30 AM CDT Temperature 36.9 ??C (98.5 ??F) 10/31/2012 7:30 AM CD T Respiratory Rate 18 10/31/2012 7:30 AM CDT Oxygen Saturation 100% 10/29/2012 3:12 PM CDT Inhaled Oxygen Concentration - - Weight 125.6 kg (277 lb) 12/19/2012 8:32 AM CDT Height 170.2 cm (5' 7 ) 12/19/2012 8:32 AM CDT Body Mass Index 43.38 12/19/2012 8:32 AM CDT Plan of Treatment Health Maintenance Due Date Last Done Comments LIPID TESTING 1979 MAMMOGRAM 1979 PAP SMEAR 1979 HIV SCREENING 1994 HEPATITIS C SCREENING 06/14/1997 HEPATITIS B VACCINE (1 of 3 - 19+ 3-dose series) 1998 DTAP/TDAP/TD VACCINES (2 - T d or Tdap) 10/30/2022 10/30/2012 COVID-19 VACCINE (2023-2 5 season) 2024 INFLUENZA VACCINE (#1) 2024 DEPRESSION SCREENING 05/03/2024 ZOSTER VACCINE (1 of 2) 2029 HIB VACCINE Aged Out No longer eligi ble based on patient's age to complete this topic HPV VACCINE Aged Out No longer eligi ble based on patient's age to complete this topic MENINGOCOCCAL (Group B) VACCINE Aged Out No longer eligible based on patient's age to complete this topic MENINGOCOCCAL VACCINE Aged Out No cristina prasad eligible based on patient's age to complete this topic PNEUMOCOCCAL VACCINE Aged Out No long er eligible based on patient's age to complete this topic Advance Directives * FULL RESUSCITATION (Latest Code Status on File) Date Activated Date Inactivated Comments 10/30/2012 10:57 AM 10/31/2012 2:56 PM * FULL RESUSCITATION Date Activated Date Inactivated Comments 10/28/2012 1:33 PM 10/30/2012 12:01 AM Care Teams Automatic Lehr Operator Relationship Specialty Start Date End Date Elisabeth Self MD PCP - General Family Medicine 07/13/12
--- OUTSIDE RECORDS SUMMARY | 2024-05-31 08:15 | XMS_ITS | Clinical Summary ---
Author Organization [facility] Address [address] [place] [address] Care Team Providers Care Crester Name Role Phone Elisabeth Self MD Primary Care Provider + Allergies Active Allergy Reactions Criticality Noted Date Comments Adhesive Tape-Silicones Rash Low 12/15/2021 Amoxicillin Rash Low 01/27/2021 Penicillins Anaphylaxis,Nausea and Vomiting,Swelling High 03/03/2016 throat closes off Reaction: Anaphylaxis, ?? Unclassified Drug Itching Low 11/10/2021 Unsure if it was sutures or skin glue with previous surgery Medications hydroCHLOROthia zide (MICROZIDE) 12.5 mg capsuleIndicati ons:Bilateral lower extremity edema Take 1 Capsule (12.5 mg) by mouth daily. 90 Capsule 09/24/2023 Active buPROPion HCL (Wellbutrin XL) 150 mg Extended Release 24 hour tablet Take 1 Tablet (150 mg) by mouth daily in the morning. 90 Tablet 12/01/2023 Active ergocalciferol (VITAMIN D2) 50,000 unit capsuleIndicati ons:Vitamin D deficiency take 1 capsule by mouth every 7 days 12 Capsule 1 01/18/2024 Active methylPREDNISol one (MEDROL DOSPACK) 4 mg Tablets, Dose Pack Use as directed. 21 Tablet 05/26/2024 Active benzonatate (TESSALON) 200 mg capsule Take 1 Capsule (200 mg) by mouth 3 times daily as needed for Cough. 30 Capsule 05/30/2024 Active Active Problems Problem Noted Date Diagnosed Date Morbid obesity with body mass index (BMI) of 40. 0 to 49.9 01/27/2021 History of anemia 01/27/2021 Overview (01/27/2021): Now status post partial hysterectomy. Will check as anemia should improve as other symptoms have resolved. Menorrhagia with regular cycle 02/15/2020 Overview (09/24/2023): Added automatically from request for surgery [id number] Vitamin D deficiency 01/10/2019 Overview (01/07/2022): Check levels today and adjust treatment plan accordingly pending results. Last Assessment & Plan: Will try changing back to vitamin-D once daily [id number]. She admits that sometimes she misses doses and she thinks that is why her level was low. We will trial the daily again and recheck vitamin-D in 6 months History of gestational diabetes 01/10/2019 Overview (01/07/2022): Check CMP including fasting blood glucose. We discussed the importance of dietary and lifestyle modifications. Major depressive disorder with current active ep isode 06/07/2017 Overview (09/24/2023): Last Assessment & Plan: Has seen improvement with wellbutrin xl. Will continue current dose. F/u 6 months History of kidney stones 07/13/2012 Overview (09/24/2023): H/o Uterine leiomyoma 07/01/2012 Overview (09/24/2023): Overview: 06.13.12- US at [facility] = 8.5 x 10 x 8.2 cm. 07/01/2012: Two fibroids were noted: one right lateral measuring 10.3 x 10.1 x 8.0cm and the other right, posterior measuring 4.7 x 3.4 x 4.4cm. Added automatically from request for surgery [id number] 06.13.12- US at [facility] = 8.5 x 10 x 8.2 cm. 07/01/2012: Two fibroids were noted: one right lateral measuring 10.3 x 10.1 x 8.0cm and the other right, posterior measuring 4.7 x 3.4 x 4.4cm. Bariatric surgery status Resolved Problems Problem Noted Date Diagnosed Date Resolved Date Pre-existing type 2 diabetes mellitus during , antepartum 12/14/2022 09/24/2023 Encounters Date Type Department Care Team Description 05/30/2024 Orders Only [address] [phone] Elisabeth Self MD 05/26/2024 2:40 PM CEMENT SACK BREAKER Office Visit [address] [phone] Elisabeth Self MD Upper respiratory tract infection, unspecified type (Primary Dx); Nummular eczema 05/25/2024 External Device Data STL ABSTRACTION Provider, Abstract 05/09/2024 External Device Data [facility] ABSTRACTION Provider, Abstract 03/29/2024 8:00 AM CEMENT SACK BREAKER Office Visit [address] [address] Elisabeth Self MD Moderate episode of recurrent major depressive disorder (CMS/HCC) (Primary Dx); Bilateral lower extremity edema 03/27/2024 Orders Only [address] [address] Elisabeth Self MD Morbid obesity with BMI of 50.0-59.9, adult (CMS/HCC) (Primary Dx); Perimenopause; Elevated blood sugar from Last 3 Months Immunizations Immunization Administration Dates Next Due (ADACEL/BOOSTRIX)(10 YR UP) TDAP VACCINE, 0.5ML, IM 10/30/2012 INFLUENZA VACCINE QUADRIVALE NT 6 MOS UP PF IM 02/15/2020 Influenza, Unspecified Formulation 02/20/2019,,03/03/2017 Family History Medical History Relation Name Comments Cancer Father liver Diabetes Mother Diabetes Sister 1 Diabetes Sister 2 Relation Name Status Comments Father Mother Alive Sister 1 Alive Sister 2 Alive Social History Tobacco Use Types Packs/Day Years Used Date Smoking Tobacco: Never Passive Smoke Exposure: Never Smokeless Tobacco: Never Tobacco Cessation:Counseling Given: No Alcohol Use Standard Drinks/Week Comments Not Currently 0 (1 standard drink = 0.6 oz pur e alcohol) Comments No Sex and Gender Information Value Date Recorded Sex Assigned at Female 05/25/2024 8:46 AM CEMENT SACK BREAKER Legal Sex Female 11:03 AM CDT Gender Identity Female 05/25/2024 8:46 AM CEMENT SACK BREAKER Sexual Orientation Not on file Last Filed Vital Signs Vital Sign Reading Time Taken Comments Blood Pressure 118/78 05/26/2024 2:02 PM CEMENT SACK BREAKER Pulse 74 05/26/2024 2:02 PM CEMENT SACK BREAKER Temperature 36.7 ??C (98.1 ??F) 07/09/2023 1:59 PM CS T Respiratory Rate 18 03/29/2024 7:55 AM CEMENT SACK BREAKER Oxygen Saturation 98% 05/26/2024 2:02 PM CEMENT SACK BREAKER Inhaled Oxygen Concentration - - Weight 141.7 kg (312 lb 6.4 oz) 05/26/2024 2:02 PM CEMENT SACK BREAKER Height 170.2 cm (5' 7 ) 05/26/2024 2:02 PM CEMENT SACK BREAKER Body Mass Index 48.93 05/26/2024 2:02 PM CEMENT SACK BREAKER Plan of Treatment Upcoming Encounters Date Type Department Care Team (Late st Contact Info) Description 08/28/2024 9:20 AM CDT Office Visit [facility] [address] [address] Elisabeth Self MD [address] [place] [phone] Health Maintenance Due Date Last Done Comments DIABETES ANNUAL FOOT EXAM 1997 DIABETES ANNUAL RETINAL EXAM 1997 HEPATITIS B VACCINES (1 of 3 - 19+ 3-dose series) 1998 CERVICAL CANCER SCREENING 2009 DTAP/TDAP/TD VACCINES (2 - Td or Tdap) 10/30/2022 10/30/2012 INFLUENZA VACCINE (#1) 2023 02/15/2020 Preventative Visit- Commercial 05/03/2024 08/27/2023, 09/30/2022, 08/24/2022, Additional history exists LDL CHOLESTEROL ANNUAL 06/29/2024 4, 10/15/2022, 03/11/2022, Additional history exists BREAST CANCER SCREENING 09/06/2024 09/07/19 24, 09/07/2023, 08/05/2022, Additional history exists DIABETES HBA1C Q 6 MONTHS 09/25/20242023, 11/05/2023, 06/29/2023, Additional history exists DIABETES MICROALBUMIN ANNUAL SCREEN 12/16/2024 12/17/2023 DIABETES: A1C (Auto Order) 03/28/202503/28, 11/05/2023, 06/29/2023, Additional history exists HPV VACCINES Aged Out No longer eligi ble based on patient's age to complete this topic Procedures Procedure Name Priority Date/Time Associated Diagnosis Comments TSH Routine 03/28/2024 8:31 AM CEMENT SACK BREAKER Morbid obesity with BMI of 50.0-59.9, adult ([facility]) Perimenopause Elevated blood sugar HEMOGLOBIN A1C Routine 03/28/2024 8:31 AM CEMENT SACK BREAKER Morbid obesity with BMI of 50.0-59.9, adult ([facility]) Elevated blood sugar COMPREHENSIVE METABOLIC PANEL Routine 03/28/2024 8:31 AM CEMENT SACK BREAKER Perimenopause Elevated blood sugar MICROALBUMIN/CREATININ E RATIO, RANDOM UR Routine 12/17/2023 4:35 PM CDT Elevated blood sugar MAMMO SCREENING BILAT Routine 09/07/2023 11:46 AM CDT LIPID PANEL Routine 06/29/2023 7:40 AM CEMENT SACK BREAKER Weight gain from Last 3 Months or Most Recently Relevant to Health Maintenance Results * TSH (03/28/2024 8:31 AM CEMENT SACK BREAKER) Pathologist [facility] TSH 1.15 mIU/L [facility] Comment: ?Reference Range ?> or = 20 Years ??0.40-4.50 ? Ranges ?First trimester ?0.26-2.66 ?Second trimester ?? 0.55-2.73 ?Third trimester ?0.43-2.91 FASTING:YES FASTING: YES Test Performed at: [facility] [id number] [place] [address] ??[phone] Mirian Reynoso MD Blood 03/28/2024 8:31 AM CEMENT SACK BREAKER 03/28/2024 8:31 AM CEMENT SACK BREAKER Elisabeth Self MD CHEMISTRY ORDERABLES Fin al Result [facility] [address] [phone] [address] * HEMOGLOBIN A1C (03/28/2024 8:31 AM CEMENT SACK BREAKER) Pathologist [facility] HEMOGLOBIN A1C 5.6 <5.7 % of total Hgb [facility] Comment: For the purpose of screening for the presence of diabetes: <5.7% ? Consistent with the absence of diabetes 5.7-6.4% ?Consistent with increased risk for diabetes ?(prediabetes) > or =6.5% ??Consistent with diabetes This assay result is consistent with a decreased risk of diabetes. Currently, no consensus exists regarding use of hemoglobin A1c for diagnosis of diabetes in children. According to [place] Diabetes Association (ADA) guidelines, hemoglobin A1c <7.0% represents optimal control in non- diabetic patients. Different metrics may apply to specific patient populations. Standards of Medical Care in Diabetes(ADA). ?? ESTIMATED AVERAGE GLUCOSE (MG/DL) 114 mg/dL [facility] [facility] kike Medina ESTIMATED AVERAGE GLUCOSE (MMOL/L) 6.3 mmol/L [facility] Comment: FASTING:YES FASTING: YES Test Performed at: [facility] [address] [place] ??[phone] Mirian Franks Vo Blood 03/28/2024 8:31 AM CEMENT SACK BREAKER 03/28/2024 8:31 AM CEMENT SACK BREAKER Elisabeth Self MD CHEMISTRY ORDERABLES Fin al Result [facility] [address] [phone] [facility] [place] [address] [place] [phone] * COMPREHENSIVE METABOLIC PANEL (03/28/2024 8:31 AM CEMENT SACK BREAKER) GLUCOSE 97 65 - 99 mg/dL [facility] Comment: ? Fasting reference interval BUN 14 7 - 25 mg/dL [facility] CREATININE 0.56 0.50 - 0.99 mg/dL [facility] GFR 115 > OR = 60 mL/min/1. 73m2 [facility] BUN/CREAT RATIO SEE NOTE: 6 - 22 (calc) [facility] Comment: ?? Not Reported: BUN and Creatinine are within ?? reference range. ? SODIUM 138 135 - 146 mmol/L [facility] POTASSIUM 3.9 3.5 - 5.3 mmol/L [facility] CHLORIDE 109 98 - 110 mmol/L [facility] CO2 27 20 - 32 mmol/L [facility] CALCIUM 8.8 8.6 - 10.2 mg/dL [facility] TOTAL PROTEIN 6.5 6.1 - 8.1 g/dL [facility] ALBUMIN 3.8 3.6 - 5.1 g/dL [facility] GLOBULIN 2.7 1.9 - 3.7 g/dL (calc) [facility] ALBUMIN/GLOBULIN RATIO 1.4 1.0 - 2.5 (calc) [facility] BILIRUBIN TOTAL 0.7 0.2 - 1.2 mg/dL [facility] ALKALINE PHOSPHATASE 43 31 - 125 U/L [facility] AST 15 10 - 30 U/L [facility] ALT 18 6 - 29 U/L [facility] Comment: Test Performed at: [facility] ??[phone] Mirian Reynoso MD Blood 03/28/2024 8:31 AM CEMENT SACK BREAKER 03/28/2024 8:31 AM CEMENT SACK BREAKER Elisabeth Self MD CHEMISTRY ORDERABLES Fin al Result [facility] [address] [phone] [facility] [address] * MICROALBUMIN/CREATININE RATIO, RANDOM UR (12/17/2023 4:35 PM CDT) Creatinine, Urine 243 20 - 275 mg/dL [facility] MICROALBUMIN, URINE 0.7 See Note: mg/dL [facility] Comment: Reference Range: Reference Range Not established MICROALBUMIN/CREAT RATIO, UR 3 <30 mg/g creat [facility] Comment: The ADA defines abnormalities in albumin excretion as follows: Albuminuria Category ?Result (mg/g creatinine) Normal to Mildly increased ?? <30 Moderately increased ? 30-299 Severely increased ? > OR = 300 The ADA recommends that at least two of three specimens collected within a 3-6 month period be abnormal before considering a patient to be within a diagnostic category. Test Performed at: [facility] [place], [place] ??[phone] Mirian Reynoso MD Urine URINE SPECIMEN OBTAINED BY CLEAN CATCH PROCEDURE / Unknown 12/17/2023 4:35 PM CDT 12/18/2023 5:41 AM CDT Elisabeth Self MD URINE ORDERABLES Final R esult [facility] [phone] [facility] [address] [place] [address] * MAMMO SCREENING BILAT (09/07/2023 11:46 AM CDT) Anatomical Region Laterality Modality Breast Bilateral Other us Abstract Provider MAMMO ORDERABLES Final Result * (ABNORMAL) LIPID PANEL (06/29/2023 7:40 AM CEMENT SACK BREAKER) CHOLESTEROL 104 <200 mg/dL [facility] HDL 28(L) > OR = 50 mg/dL [facility] TRIGLYCERIDE 68 <150 mg/dL [facility] LDL CALCULATED 62 mg/dL (calc) [facility] Comment: Reference range: <100 Desirable range <100 mg/dL for primary prevention; ?? <70 mg/dL for patients with CHD or diabetic patients with > or = 2 CHD risk factors. LDL-C is now calculated using the Zia-Jennifer calculation, which is a validated novel method providing better accuracy than the Friedewald equation in the estimation of LDL-C. Zia HATHAWAY et al. KENNETH. 2013;310(19): 7931-0609 (http://education.[facility].[employer]/faq/JDK615) CHOL/HDL RATIO 3.7 <5.0 (calc) [facility] TOTAL NON-HDL CHOL(LDL+VLDL) 76 <130 mg/dL (calc) [facility] Comment: For patients with diabetes plus 1 major ASCVD risk factor, treating to a non-HDL-C goal of <100 mg/dL (LDL-C of <70 mg/dL) is considered a therapeutic option. Test Performed at: [facility] [address] ??[phone] Mirian Reynoso MD Blood 06/29/2023 7:40 AM CEMENT SACK BREAKER 06/29/2023 7:40 AM CEMENT SACK BREAKER Elisabeth Self MD CHEMISTRY ORDERABLES Fin al Result [facility] [phone] [facility] [address] [phone] from Last 3 Months or Most Recently Relevant to Health Maintenance Insurance [employer] BLUE PREFERRED RX [employer] RX Member Subscriber Plan / Payer (Ef fective 2021-Present) Name:Juliette Elizabeth Relation to Subscriber:Self Name:Juliette Elizabeth Subscriber ID:Not on file Payer ID:Not on file Type:RX Commercial Address: [address] Advance Directives For more information, please contact: [phone] * Full Code (Latest Code Status on File) Date Activated Date Inactivated Comments 12/09/2021 4:48 PM 12/10/2021 1:59 PM * Full Code Date Activated Date Inactivated Comments 09/10/2021 1:02 PM 09/10/2021 4:51 PM Care Teams Crester Relationship Specialty Start Date End Date Elisabeth Self MD [address] [place] [phone] PCP - General Family Practice 01/27/21
--- OUTSIDE RECORDS SUMMARY | 2024-05-31 08:15 | XMS_ITS | Referral Summary ---
Author Organization [facility] Address [address] [place] [address] Care Team Providers Care Chief Relay Tester Name Role Phone Elisabeth Self MD Primary Care Provider + Source Comments [facility],non-owned Affiliates and Associated Physician Practices is amultiple site organization consisting of ambulatory clinics and hospital sitesin [place], [place], [place] and [place]. This disclosure is being madepursuant to the Care Everywhere program and may not contain all information available regarding this patient. Last updated 18.[facility] Allergies No known active allergies Medications * [...] fibroid 07/01/2012 Overview (07/13/2012): 06.13.12- US at [facility] = 8.5 x 10 x 8.2 cm. 07/01/2012: Two fibroids were noted: one right lateral measuring 10.3 x 10.1 x 8.0cm and the other right, posterior measuring 4.7 x 3.4 x 4.4cm. Immunizations Name Administration Dates Next Due TDAP (7yrs+) 10/30/2012 Social History Tobacco Use Types Packs/Day Years [...] 12/19/2012 8:32 AM CDT Plan of Treatment Not on file Advance Directives * FULL RESUSCITATION (Latest Code Status on File) Date Activated Date Inactivated Comments 10/30/2012 10:57 AM 10/31/2012 2:56 PM * FULL RESUSCITATION Date Activated Date Inactivated Comments 10/28/2012 1:33 PM 10/30/2012 12:01 AM Care Teams Chief Relay Tester Relationship Specialty Start Date End Date Elisabeth Self MD PCP - General Family Medicine 07/13/12
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
--- OUTSIDE RECORDS SUMMARY | 2024-05-31 08:16 | XMS_ITS | Referral Summary ---
Author Organization [facility] Address [address] [place] [address] Care Team Providers Care Probation Supervisor Name Role Phone Elisabeth Self Primary Care [...] (02/15/2020): Added automatically from request for surgery [id number] Uterine leiomyoma 02/15/2020 Overview (02/15/2020): Added automatically from request for surgery [id number] History of gestational diabetes 01/10/2019 Vitamin D deficiency 01/10/2019 Assessment & Plan (01/24/2020 3:15 PM CDT): Will try changing back to vitamin-D once daily [id number]. She admits that sometimes she misses doses and she thinks that is why her level was low. We will trial the daily again and recheck vitamin-D in 6 months Assessment & Plan (10/23/2019 4:21 PM CDT): Will renew vitamin D weekly and have her add daily otc vitamin D 5266-8183 international units'. Will recheck vitamin D level [...] 07/01/2012 Overview (01/10/2019): Overview: 06.13.12- US at [facility] = 8.5 x 10 x 8.2 cm. 07/01/2012: Two fibroids were noted: one right lateral measuring 10.3 x 10.1 x 8.0cm and the other right, posterior measuring 4.7 x 3.4 x 4.4cm. 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 Gender Identity Not on file Sexual Orientation [...] 01/31/2024 11:38 AM CDT Plan of Treatment Not on file Medical Devices Implanted Type Area Environmental Monitoring Technician Device Identifier Shelf Expiration Date Model / Serial / Lot [employer]/C R Bard [id number] Ventralight St Sepra 4.5in Uncoated Monofilament Lightweight - [id number] Implanted:Qty: 1 on 01/12/2020 by Garland Donnelly MD at [facility] N/A: Abdomen [employer]/C R Bard 05/30/2021 [id number] / / [id number] Procedures Procedure Name Priority Date/Time Associated Diagnosis [...] Genotypes (08/27/2023 12:43 PM CDT) CLINICAL INFORMATION: [facility] Comment:Routine exam LMP [facility] Comment:HYSTERECTOMY Previous Pap [facility] Comment:NONE GIVEN Prev. Bx [facility] Comment:NONE GIVEN SOURCE: [facility] Comment:Vagina Pap, specimen adequacy [facility] Comment:SATISFACTORY FOR VIKA LUATION HPV interp [facility] Comment: Cytology Results: Negative for intraepithelial lesion or malignancy. COMMENTS [facility] Comment: This Pap test has been evaluated with computer assisted technology. Scalp Specialist Jaspreet [facility] Comment: RICA, CT(ASCP) CT screening location: [place] [address] [place] [address] Comment [facility] Comment: EXPLANATORY NOTE: The Pap is [...] High Risk E6/E7 Not Detected NOT DETECTED [employer] [facility] Comment: Not Detected High Risk HPV types (16,18,31,33,35,39,45,51,52, 56,58,59,66,68) were not detected. Other HPV types which cause anogenital lesions may be present. The significance of the other types of HPV in malignant processes has not been established. Methodology: Real Time PCR ? Thin prep 08/27/2023 12:4 3 PM CDT 08/28/2023 5:57 AM CDT Osiris Carvalho NP LAB CYTOLOGY ORDERABLES Final Re sult [facility] [address] [place] [place] [phone] [employer] [address] [facility] [place] [address] * Serum Hepatitis C ab (02/08/2016 3:51 AM CDT) HCV ab NON-REACTI VE NON-REACTI VE CDR HISTORICAL RESULTS Hepatitis signal to cutoff ratio 0.01 <1.00 CDR HISTORICAL RESULTS Serum 02/08/2016 3:51 AM CDT Narrative CDR HISTORICAL RESULTS - 02/11/2016 3:00 AM CDT Test performed at [facility] [address] [place], [place] ??[address] Director: MELVIN HOYT DO,MPH us Historical Provider LAB BLOOD ORDERABLES Aneta reilly Result CDR HISTORICAL RESULTS from Last 3 Months or Most Recently Relevant to Health Maintenance Insurance BLUE ACCESS OOS [employer] OOS Advance Directives For more information, please contact: [phone] * Full Code (Latest Code Status on File) Date Activated Date Inactivated Comments 04/05/2020 7:00 PM 04/06/2020 7:19 PM Care Teams Probation Supervisor Relationship Specialty Start Date End Date Elisabeth Self MD [address] [place] [address] [place] [address] PCP - General 07/02/21
--- OUTSIDE RECORDS SUMMARY | 2024-05-31 08:16 | XMS_ITS | Encounter Summary ---
Author Organization [facility] Address [address] [place] [address] Care Team Providers Care Lead Recoverer Name Role Phone Elisabeth Self MD Primary Care Provider + Encounter Details Date Type Department Care Team (Late Contact Info) Description 05/30/2024 Orders Only [address] [phone] Elisabeth Self MD [address] [place] [phone] Social History Tobacco Use Types Packs/Day Years Used Date Smoking Tobacco: Never Passive Smoke Exposure: Never Smokeless Tobacco: Never Alcohol Use Standard Drinks/Week Comments Not Currently 0 (1 standard drink = 0.6 oz pur e alcohol) Comments No Sex and Gender Information Value Date Recorded Sex Assigned at Female 05/25/2024 8:46 AM WINDOWS SERVER ENGINEER Legal Sex Female 11:03 AM CDT Gender Identity Female 05/25/2024 8:46 AM WINDOWS SERVER ENGINEER Sexual Orientation Not on file documented as of this encounter Plan of Treatment Upcoming Encounters Date Type Department Care Team ([facility] Contact Info) Description 08/28/2024 9:20 AM CDT Office Visit [address] [phone] Elisabeth Self MD [address] [place] [phone] documented as of this encounter Visit Diagnoses Not on filedocumented in this encounter Care Teams Lead Recoverer Relationship Specialty [place] [address] [place] [phone] PCP - General Family Practice 01/27/21 documented as of this encounter
--- OUTSIDE RECORDS SUMMARY | 2024-05-31 08:16 | XMS_ITS | Patient Health Summary ---
Author Organization [facility] Address [address] [place] [address] Care Team Providers Care Guest Room Inspector Name Role Phone Elisabeth Self MD Primary Care Provider + Note from [facility],non-owned Affiliates and Associated Physician Practices is amultiple site organization consisting of ambulatory clinics and hospital sitesin [place], [place], [place] and [place]. This disclosure is being madepursuant to the Care Everywhere program and may not contain all information available regarding this patient. Last updated 18.[facility] Allergies No known active allergies Medications * Be aware that medications may not be up to date on this document. Alwaysverify current medications with the patient. * Vit-Fe Fumarate-FA ( VITAMIN) 28-0.8 MG tablet(Started 10/31/2012) Take 1 Tab by mouth once daily. Indications: 3 refills left * ibuprofen (MOTRIN) 600 MG tablet(Started 10/31/2012) Take 1 Tab by mouth every 6 hours as needed for Pain. 3 refills left * docusate sodium (COLACE) 100 MG capsule(Started 10/31/2012) Take 1 Cap by mouth 2 times daily. 1 refill left * norgestimate-ethinyl estradiol (ORTHO-CYCLEN, 28,) 0.25-35 MG-MCG tablet (Started 12/19/2012) Take 1 Tab by mouth once daily. 11 refills left Active Problems Problem Noted Date Diagnosed Date Gestational diabetes mellitus in 09/09 Kidney stones 07/13/2012 Supervision of other high-risk 013 Obesity 07/01/2012 Uterine fibroid 07/01/2012 Immunizations * TDAP (7yrs+)(Given 10/30/2012) Social History Tobacco Use Types Packs/Day Years [...] Mass Index 43.38 12/19/2012 8:32 AM CDT Procedures * GTT 2 HR (75G) NON GESTATIONAL(Performed 12/19/2012) * IMAGING/RADIOLOGY/XRAY RESULTS ORDER(Performed 11/03/2012) * GLUCOSE - POINT OF CARE(Performed 10/31/2012) * LAB HISTORICAL RESULTS-ONBASE(Performed 10/31/2012) * CBC W AUTO DIFFERENTIAL(Performed 10/30/2012) * BLOOD GASES CORD FRIEDA(Performed 10/29/2012) * GLUCOSE - POINT OF CARE(Performed 10/29/2012) * GLUCOSE - POINT OF CARE(Performed 10/29/2012) * EPIDURAL BLOCK(Performed 10/29/2012) * GLUCOSE - POINT OF CARE(Performed 10/29/2012) * GLUCOSE - POINT OF CARE(Performed 10/29/2012) * GLUCOSE - POINT OF CARE(Performed 10/29/2012) * GLUCOSE - POINT OF CARE(Performed 10/29/2012) * GLUCOSE - POINT OF CARE(Performed 10/29/2012) * GLUCOSE - POINT OF CARE(Performed 10/29/2012) * GLUCOSE - POINT OF CARE(Performed 10/29/2012) * GLUCOSE - POINT OF CARE(Performed 10/28/2012) * GLUCOSE - POINT OF CARE(Performed 10/28/2012) * GLUCOSE - POINT OF CARE(Performed 10/28/2012) * BLOOD TYPE VERIFICATION(Performed 10/28/2012) * GLUCOSE - POINT OF CARE(Performed 10/28/2012) * TYPE + SCREEN PANEL(Performed 10/28/2012) Performed for Supervision of other high-risk (HCC) * CBC W AUTO DIFFERENTIAL(Performed 10/28/2012) Performed for Supervision of other high-risk (HCC) * GLUCOSE PROTEIN KETONE URINE - POINT OF CAR(Performed 10/27/2012) * SONOGRAM - COMPLETE(Performed 10/27/2012) Performed for Obesity, Uterine fibroid, Supervision of other high-risk (HCC), Kidney stones * BIOPHYSICAL PROFILE W NST(Performed 10/20/2012) * SONOGRAM - LIMITED(Performed 10/20/2012) * GLUCOSE PROTEIN KETONE URINE - POINT OF CAR(Performed 10/20/2012) * CULTURE STREP B(Performed 10/13/2012) * BIOPHYSICAL PROFILE W NST(Performed 10/13/2012) * SONOGRAM - LIMITED(Performed 10/13/2012) * GLUCOSE PROTEIN KETONE URINE - POINT OF CAR(Performed 10/13/2012) * SONOGRAM - COMPLETE(Performed 10/06/2012) Performed for Obesity, Uterine fibroid, Supervision of other high-risk (HCC), Kidney stones * GLUCOSE PROTEIN KETONE URINE - POINT OF CAR(Performed 10/06/2012) * SONOGRAM - COMPLETE(Performed 09/29/2012) Performed for Kidney stones, Supervision of other high-risk (HCC), Obesity, Uterine fibroid * SONOGRAM - LIMITED(Performed 09/22/2012) * BIOPHYSICAL PROFILE W NST(Performed 09/22/2012) Performed for Obesity, Uterine fibroid, Supervision of other high-risk (HCC), Kidney stones, Gestational diabetes mellitus in (HCC) * GLUCOSE PROTEIN KETONE URINE - POINT OF CAR(Performed 09/22/2012) * SONOGRAM - COMPLETE(Performed 09/09/2012) Performed for Obesity, Uterine fibroid, Supervision of other high-risk (HCC), Kidney stones * SONOGRAM - COMPLETE(Performed 08/12/2012) Performed for Obesity, Uterine fibroid, Supervision of other high-risk (HCC), Kidney stones * URINALYSIS REFLEX MICROSCOPIC REFLEX CULTURE(Performed 07/25/2012) Performed for Supervision of other high-risk (HCC) * CULTURE URINE(Performed 07/25/2012) Performed for Supervision of other high-risk (HCC) * GLUCOSE PROTEIN KETONE URINE - POINT OF CAR(Performed 07/13/2012) * SONOGRAM - COMPLETE(Performed 07/01/2012) Performed for Fibroid Results * GTT 2 HR (75G) NON GESTATIONAL (12/19/2012 8:49 AM CDT) Glucose Dose 50 Grams 12/19/2012 12:03 PM CDT [facility] GTT Fasting 100 mg/dL 12/19/2012 12:03 PM CDT [facility] GTT 1 Hour 164 mg/dL 12/19/2012 12:03 PM CDT [facility] GTT 2 Hour 115 mg/dL 12/19/2012 12:03 PM CDT [facility] Blood BLOOD SPECIMEN / Unknown Venipuncture / Unknown 12/19/2012 8:49 AM CDT 12/19/2012 9:20 AM CDT Ary Agee MD LAB - CHEMISTRY OR DERABLES Performing Organization Address City/State/[facility] Co de Phone Number [facility] [address] [place] [address] * IMAGING/RADIOLOGY/XRAY RESULTS ORDER (11/03/2012 2:37 PM CDT) Anatomical Region Laterality Modality Other Narrative 11/03/2012 2:37 PM CDT Procedure Note Document, Scanned - 11/03/2012 2:37 PM CDT Scanned Document IMAGING * GLUCOSE - POINT OF CARE (10/31/2012 6:07 AM CDT) Only the most recent of16 resultswithin the time period is included. Glucose WB/POC 96 70 - 106 mg/dL 10/31/2012 5:34 PM CDT [facility] Blood specimen (specimen) BLOOD SPECIMEN / Unknown 10/31/2012 6:07 AM CDT 10/31/2012 5:34 PM CDT Narrative [facility] - 10/31/2012 5:34 PM CDT GLYCEMIC PROTOCOL Chivo Coreas MD LAB - POINT OF CARE ORDERABLES [facility] [address] [place] [address] * LAB HISTORICAL RESULTS-ONBASE (10/31/2012) 10/31/2012 Narrative [facility] - 11/01/2012 8:56 AM CDT Historical Provider LAB - CHEMISTRY O RDERABLES [facility] [address] * (ABNORMAL) CBC W AUTO DIFFERENTIAL (10/30/2012 6:49 AM CDT) Only the most recent of2 resultswithin the time period is included. WBC 19.3(H) 4.4 - 10.7 x10^9/L 10/30/2012 6:59 AM CDT [facility] RBC 3.58(L) 3.80 - 5.20 x10^12/L 10/30/2012 6:59 AM CDT [facility] Hemoglobin 11.2(L) 12.0 - 15.6 g/dL 10/30/2012 6:59 AM CDT [facility] Hematocrit 32.6(L) 35.9 - 45.5 % 10/30/2012 6:59 AM CDT [facility] MCV 91.1 80.7 - 98.3 fl 10/30/2012 6:59 AM CDT [facility] MCH 31.3 26.7 - 34.0 pg 10/30/2012 6:59 AM CDT [facility] MCHC 34.4 30.8 - 35.9 gm/dL 10/30/2012 6:59 AM CDT [facility] Platelet Count 131(L) 153 - 416 x10^9/L 10/30/2012 6:59 AM CDT [facility] RDW-CV 13.4 12.1 - 14.9 % 10/30/2012 6:59 AM CDT [facility] MPV 12.2 9.4 - 12.9 fl 10/30/2012 6:59 AM CDT [facility] Neutrophils % 85(H) 44 - 73 % 10/30/2012 6:59 AM CDT [facility] Lymphocytes % 8(L) 20 - 43 % 10/30/2012 6:59 AM CDT [facility] Monocytes % 6 5 - 13 % 10/30/2012 6:59 AM CDT [facility] Eosinophils % 0 0 - 6 % 10/30/2012 6:59 AM CDT [facility] Basophils % 0 0 - 2 % 10/30/2012 6:59 AM T [facility] Immature Granulocytes 0.5 0 - 1 % 10/30/2012 6:59 AM T [facility] Neutrophil Absolute 16.47(H) 2.01 - 7.14 x10^9/L 10/30/2012 6:59 AM CDT [facility] Lymphocytes Absolute 1.54 1.07 - 3.94 x10^9/L 10/30/2012 6:59 AM CDT [facility] Monocytes Absolute 1.16(H) 0.26 - 1.07 x10^9/L 10/30/2012 6:59 AM T [facility] Eosinophils Absolute 0.04 0 - 0.47 x10^9/L 10/30/2012 6:59 AM CDT [facility] Basophils Absolute 0.01 0 - 0.08 x10^9/L 10/30/2012 6:59 AM T [facility] Immature Granulocytes Absolute 0.09(H) 0.00 - 0.06 x10^9/L 10/30/2012 6:59 AM T [facility] nRBC Auto 0 10/30/2012 6:59 AM T [facility] Blood specimen (specimen) BLOOD SPECIMEN / Unknown Lab Venipuncture / Unknown 10/30/2012 6:49 AM CDT 10/30/2012 6:55 AM CDT Wyatt Rocha MD LAB - HEMATOLOGY ORD ERABLES [facility] [address] [place] [address] * BLOOD GASES CORD VENOUS (10/29/2012 8:36 PM CDT) pH Cord Venous 7.40 7.28 - 7.40 pH 10/29/2012 8:52 PM T [facility] pCO2 Cord Venous 40 35 - 45 mm hg 10/29/2012 8:52 PM CDT [facility] pO2 Cord Venous 22 22 - 33 mm hg 10/29/2012 8:52 PM CDT [facility] HCO3 Cord Venous 24 22 - 24 mmol/L 10/29/2012 8:52 PM CDT [facility] BE Cord Venous -1.0 mmol/L 10/29/2012 8:52 PM CDT [facility] O2 Saturation Cord Venous 38 % 10/29/2012 8:52 PM CDT [facility] Mode Unknown 10/29/2012 8:52 PM CDT [facility] Carloz's Test N/A 10/29/2012 8:52 PM CDT [facility] Sample Site UMB 10/29/2012 8:52 PM CDT [facility] Sample Type Cord Blood Venous 10/29/2012 8:52 PM CDT [facility] Word Processing Machine Operator ID [id number] 10/29/2012 8:52 PM CDT [facility] Notified Who nurse 10/29/2012 8:52 PM CDT [facility] Notification Time 10/29/2012 20:51 10/29/2012 8:52 PM CDT [facility] Notified By 10/29/2012 8:52 PM CDT [facility] Blood specimen (specimen) CORD BLOOD SPECIMEN / Unknown 10/29/2012 8:36 PM CDT 10/29/2012 8:36 PM CDT Wyatt Rocha MD LAB - BLOOD GASES OR DERABLES Performing Organization Address [facility] Co de Phone Number [facility] [address] [place] [address] * ANESTHESIA BLOCK PERF (10/29/2012 2:59 PM CDT) Narrative Sherry Gaspar CRNA - 10/29/2012 2:59 PM CDT Sherry Gaspar CRNA ? 10/29/2012 ??2:59 PM Epidural . ?? Location: L4-5 Preanesthetic Checklist Completed: patient identified, IV checked, site marked, risks and benefits discussed, surgical consent, monitors and equipment checked, pre-op evaluation, timeout performed and questions answered / anesthesia plan accepted ?? Epidural . ?? Position for procedure: ??sitting Prep: ??sterile gloves, cap, mask, sterile field established, kit and supplies assembled on sterile field and skin prepped with Betadine. ?? Needle: ??18 G Tuohy ?? Needle insertion depth: 9 cmLocation: L4-5 Injection technique: loss of resistance and catheter Catheter at skin depth: 14 cm Additional response: ??Test dose 1.5 % Lidocaine with epinephrine 3 ml--negative Ropivicaine 0.2% incremental bolus for total of 8 ml Response to Block: ?? Anesthesia level achieved: ??T10 Start time: 10/29/2012 2:44 PM End time: 10/29/2012 2:51 PM Anesthesia level achieved: ??[id number] response: ??Test dose 1.5 % Lidocaine with epinephrine 3 ml--negative Ropivicaine 0.2% incremental bolus for total of 8 ml Patient Care after Block: Instructions to patient: ??COMPUTER SUPPORT SPECIALIST use, expected sensory deficits and activity restrictions Additional Notes: Post epidural, supine with tilt Procedure Note Sherry Gaspar CRNA - 10/29/2012 2:58 PM CDT Epidural . Location: L4-5 Preanesthetic Checklist Completed: patient identified, IV checked, site marked, risks and benefitsdiscussed, surgical consent, monitors and equipment checked, pre-opevaluation, timeout performed and questions answered / anesthesia planaccepted Epidural . Position for procedure: sitting Prep: sterile gloves, cap, mask, sterile field established, kit andsupplies assembled on sterile field and skin prepped with Betadine. Needle: 18 G Tuohy Needle insertion depth: 9 cmLocation: L4-5 Injection technique: loss of resistance and catheter Catheter at skin depth: 14 cm Additional response: Test dose 1.5 % Lidocaine with epinephrine 3ml--negative Ropivicaine 0.2% incremental bolus for total of 8 ml Response to Block: Anesthesia level achieved: T10 Start time: 10/29/2012 2:44 PM End time: 10/29/2012 2:51 PM Anesthesia level achieved: [id number] response: Test dose 1.5 %Lidocaine with epinephrine 3 ml--negative Ropivicaine 0.2% incremental bolus for total of 8 ml Patient Care after Block: Instructions to patient: COMPUTER SUPPORT SPECIALIST use, expected sensory deficits and activityrestrictions Additional Notes: Post epidural, supine with tilt Sherry Gaspar PRICING ACTUARY-LOG CARRIER OPERATOR GENERAL ANES THESIA ORDERABLES * BLOOD TYPE VERIFICATION (10/28/2012 4:59 PM CDT) ABO O 10/28/2012 6:25 PM CDT [facility] Rh Type Positive 10/28/2012 6:25 PM CDT [facility] Miscellaneous samples (specimen) BLOOD SPECIMEN / Unknown Venipuncture / Unknown 10/28/2012 4:59 PM CDT 10/28/2012 5:05 PM CDT Chivo Coreas MD LAB - BLOOD BANK ORD ERABLES [facility] * TYPE + SCREEN PANEL (10/28/2012 2:19 PM CDT) ABO O 10/28/2012 3:30 PM CDT [facility] Rh Type Positive 10/28/2012 3:30 PM CDT [facility] Antibody Screen Negative 3 3:30 PM CDT [facility] Comment:No historical blood type. Retype required. Miscellaneous samples (specimen) BLOOD SPECIMEN / Unknown Venipuncture / Unknown 10/28/2012 2:19 PM CDT 10/28/2012 2:35 PM CDT Vy Milan MD LAB - BLOOD BANK ORD ERABLES [facility] * GLUCOSE PROTEIN KETONE URINE - POINT OF CAR (10/27/2012 9:34 AM CDT) Only the most recent of6 resultswithin the time period is included. Glucose UA neg Negative [facility] Protein UA neg Negative [facility] Ketone UA neg Negative [facility] QC Verified yes Yes [facility] POC T TESTING Urine specimen (specimen) URINE / Unknown 10/27/2012 9:34 AM CDT Wyatt Rocha MD LAB - POINT OF CARE ORDERABLES [facility] [address] [place] [address] * SONOGRAM - COMPLETE (10/27/2012 8:49 AM CDT) Only the most recent of6 resultswithin the time period is included. Anatomical Region Laterality Modality Other 10/27/2012 8:49 AM CDT Narrative 10/28/2012 6:53 AM CDT ? [facility] ? M[facility] & Care Center ?PHONE: ??FAX: Pat. Name: ?JONAS WAGGONER. No: ?[id number] Study Date: ?? 10/27/2012 ??8:49am , Age: ? 1980, 32 Pregnancies: ?? 1, Para 0 LMP: ?01/30/2012 GA by LMP: ?38w5d GA by rust: ?38w5d GA by US: ? 38w0d GA Selected: ??38w5d (LMP) CARLYN: ?11/05/2012 Referring : KATHIA Implement Mechanic: ??Liss Neri RDMS Hist/Ind: ? Gestational Diabetes MEASUREMENTS & AGE ? GROWTH EVALUATION Measurement ??GA ? Range ? Srce %for GA Ratios ----- ---- ------- BPD ??9.4 cm 38w1d (09j9g-43t8w) Hadl BPD 42% FL/BPD 0.81 (0.71 - 0.87) HC ??33.1 cm 37w5d (53i3s-45y4b) Hadl HC ??33% FL/AC ??0.22 (0.20 - 0.24) AC ??34.2 cm 38w1d (35u5y-54v1n) Hadl AC ??41% HC/AC ??0.97 (0.90 - 1.09) FL ?? 7.6 cm 38w6d (81e0t-33q9g) Hadl FL ??52% CI ? 0.81 (0.70 - 0.86) HL ?? 6.4 cm 37w2d (36n9i-96m0h) Neptali HL ??28% GA for sonogram 38w0d (85k9w-78c4d) ?? Weight Estimate: based on (HL,BPD,HC,AC,FL) Avg ? Weight: 3435 gm (5074-0323) Hadlo ? : 7lbs, 9oz ? Normal: 3128 gm (2629- 3708) Brenn ? Wt% ? 71% for 38.7 wks Heart Rate: 155.0 bpm Amniotic Fluid Index: 14.8 (07.2-23.0) Q1: 0.9 ?? Q2: 3.2 ?? Q3: 5.8 ?? Q4: 4.9 ?? Biophysical Profile: 02/09 Breathin ?? Tone: 2 ?? NST: 2 Movement: ??2 ?? AFV: ??2 CLINICAL SUMMARY Study Number: ??10 A sharma fetus is identified in cephalic presentation. ??The measurements today are consistent with appropriate growth compared to previous examination. ??The CARLYN selected is based on her LMP and a prior ultrasound examination. ??The amniotic fluid volume is within normal limits. ??The placenta is posterior, Grade 2. ?? TESTING The Biophysical profile score is 10/10. IMPRESSION: ?? Single, live, IUP at 38w5d size consistent with established CARLYN. Reassuring testing RECOMMEND: ?? Twice weekly NST Repeat ultrasound as clinically indicated. ?? Thank you for allowing us the opportunity to care for your patient. Emili Horner MD <Electronic Signature> ??10/28/2012 06:53am Isis Ross MD [facility] ORDERABLES * BIOPHYSICAL PROFILE W NST (10/20/2012 4:08 PM CDT) Only the most recent of3 resultswithin the time period is included. Anatomical Region Laterality Modality Other 10/20/2012 4:08 PM CDT Narrative 10/20/2012 4:57 PM CDT ? [facility] ? Maternal & Care Center ?PHONE: ??FAX: Pat. Name: ?JONAS WAGGONER. No: ?[id number] Study Date: ?? 10/20/2012 ??4:08pm , Age: ? 1980, 32 Pregnancies: ?? 1, Para 0 LMP: ?01/30/2012 GA by LMP: ?37w5d GA by 1st: ?37w5d Referring : KATHIA Implement Mechanic: ??Kaleb Quiros RDMS Hist/Ind: ? Gestational Diabetes Heart Rate: 148.0 bpm Amniotic Fluid Index: 10.1 CLINICAL SUMMARY Study Number: 9 (2 of 2) A sharma fetus is identified in cephalic presentation. ??The placenta is posterior, Grade 2. ??The amniotic fluid volume is within normal limits. ??No major malformations are seen. IMPRESSION: ?? 1. Single, live, IUP at 37w5d. 2. Normal amniotic fluid volume 3. Reassuring testing RECOMMEND: ?? 1. Continue weekly testing as clinically indicated. 2. Follow up ultrasound as clinically indicated. Thank you for allowing us the opportunity to care for your patient. Tyrone Cooper MD <Electronic Signature> ??10/20/2012 04:57pm Young Bonilla MD [facility] ORDERABLES * SONOGRAM - LIMITED (10/20/2012 3:29 PM CDT) Only the most recent of3 resultswithin the time period is included. Anatomical Region Laterality Modality Other 10/20/2012 3:29 PM CDT Narrative 10/20/2012 4:57 PM CDT ? [facility] ? [facility] Center ?PHONE: ??FAX: Pat. Name: ?JONAS WAGGONER Pat. No: ?[id number] Study Date: ?? 10/20/2012 ??3:29pm , Age: ? 1980, 32 Pregnancies: ?? 1, Para 0 LMP: ?01/30/2012 GA by LMP: ?37w5d GA by 1st: ?37w5d GA Selected: ??37w5d (LMP) CARLYN: ?11/05/2012 Referring MD: KATHIA Implement Mechanic: ??Kaleb Quiros RDMS Hist/Ind: ? Gestational Diabetes Heart Rate: 148.0 bpm Amniotic Fluid Index: 10.1 (07.4-24.1) Q1: 1.4 ?? Q2: 2.5 ?? Q3: 1.5 ?? Q4: 4.7 ?? Biophysical Profile: 02/09 Breathin ?? Tone: 2 ?? NST: 2 Movement: ??2 ?? AFV: ??2 CLINICAL SUMMARY Study Number: 9 (1 of 2) TESTING The Biophysical profile score is 10/10. IMPRESSION: ?? 1. Single, live, IUP at 37w5d. 2. Normal amniotic fluid volume 3. Reassuring testing RECOMMEND: ?? 1. Continue weekly testing as clinically indicated. 2. Follow up ultrasound as clinically indicated. Thank you for allowing us the opportunity to care for your patient. Tyrone Cooper MD <Electronic Signature> ??10/20/2012 04:57pm Young Bonilla MD [facility] ORDERABLES * CULTURE STREP B (10/13/2012 11:53 AM CDT) Culture Negative for Beta Hemolytic Streptococcus Group B 10/16/2012 6:57 AM CDT [facility] Miscellaneous samples (specimen) ENTIRE ENDOCERVIX / Unknown Collection / Unknown 10/13/2012 11:53 AM CDT 10/13/2012 1:44 PM CDT Dolores López MD LAB - MICROBIOLOGY ORDERABLES [facility] [address] [place] [address], [facility] * (ABNORMAL) URINALYSIS ROUTINE W/REFLEX TO CULTURE (07/25/2012 2:48 PM CDT) Color UA Yellow Straw, Yellow, Dark Yellow 07/25/2012 3:17 PM CDT [facility] Clarity UA Cloudy (none) 07/25/2012 3:17 PM CDT [facility] Specific [place] UA 1.015 1.005 - 1.030 07/25/2012 3:17 PM CDT [facility] pH UA 6.0 5.0 - 8.0 07/25/2012 3:17 PM CDT [facility] Protein UA Negative Negative 07/25/2012 3:17 PM CDT [facility] Blood UA Negative Negative 07/25/2012 3:17 PM CDT [facility] Leukocyte UA 2+(A) Negative 07/25/2012 3:17 PM CDT [facility] Nitrite UA Negative Negative 07/25/2012 3:17 PM CDT [facility] Glucose UA Negative Negative 07/25/2012 3:17 PM CDT [facility] Ketone UA Negative Negative 07/25/2012 3:17 PM CDT [facility] Bilirubin UA Negative Negative 07/25/2012 3:17 PM CDT [facility] Urobilinogen UA 0.2 0.1 - 1.0 EU/dL 07/25/2012 3:17 PM CDT [facility] WBC UA Auto 10-20(A) 0-2, 2-5 #/hpf 07/25/2012 3:17 PM [facility] RBC UA Auto 5-10(A) 0-2, 2-5 #/hpf 07/25/2012 3:17 PM CDT [facility] Epithelial Cell UA Auto 5-10(A) 0-2, 2-5 #/hpf 07/25/2012 3:17 PM CDT [facility] Bacteria UA Auto 2+(A) None seen 07/26/19 13 3:17 PM CDT [facility] Hyaline Casts UA Auto 0-2(A) None seen #/lpf 07/25/2012 3:17 PM [facility] Reflex Status Culture to follow (none) 07/25/2012 3:17 PM [facility] Urine specimen (specimen) URINE SPECIMEN OBTAINED BY CLEAN CATCH PROCEDURE / Unknown 07/25/2012 2:48 PM CDT 07/25/2012 2:55 PM CDT Jonas Cam MD LAB - URINAL YSIS ORDERABLES Performing Organization Address City/[facility]/ZIP Co de Phone Number [facility] [address] [place] [address] * CULTURE URINE (07/25/2012 2:48 PM CDT) Culture 10,000-50,000 CFU/mL normal urogenital fabricio 07/27/2012 9:24 AM CDT [facility] Urine specimen (specimen) URINE SPECIMEN OBTAINED BY CLEAN CATCH PROCEDURE / Unknown 07/25/2012 2:48 PM CDT 07/25/2012 2:55 PM CDT Jonas Cam MD LAB - MICROB IOLOGY ORDERABLES Performing Organization Address [facility] Co de Phone Number [facility] [address] Care Teams Guest Room Inspector Relationship Specialty Start Date End Date Elisabeth Self MD PCP - General Family Medicine 07/13/12
== END 2024-05-31 08:33 | disposition home or self-care (01) ==
PROVIDERS: Emergency Provider Registered Nurse
DX: J40 Bronchitis, not specified as acute or chronic (principal); Z98.84 Bariatric surgery status
CPT/HCPCS: 99213; G0463

== ENCOUNTER 2024-07-09 12:41 | Emergency (ER) | payer BC, SELFPAY ==
--- OUTSIDE RECORDS SUMMARY | 2024-07-09 12:43 | XMS_ITS | Clinical Summary ---
Author Organization [facility] Address [address] [place] [address] Care Team Providers Care Concrete Products Machine Operator Name Role Phone Elisabeth Self Primary Care Provider Allergies Active Allergy Reactions Criticality Noted Date Comments Adhesive Tape-Silicones Rash Medium 12/15/2021 Amoxicillin Edema High Ethinyl Estradiol Other (See comments) Low Has no idea Penicillins Anaphylaxis,Nausea And Vomiting,Rash,Swelli ng High 03/03/2016 Reaction: Anaphylaxis, throat closes off Reaction: Anaphylaxis, Sulfa (Sulfonamide Antibiotics) Rash Medium 06/23/2017 Unclassified [...] (02/15/2020): Added automatically from request for surgery [id number] Uterine leiomyoma 02/15/2020 Overview (02/15/2020): Added automatically from request for surgery [id number] History of gestational diabetes 01/10/2019 Vitamin D deficiency 01/10/2019 Assessment & Plan (01/24/2020 3:15 PM CDT): Will try changing back to vitamin-D once daily [id number]. She admits that sometimes she misses doses and she thinks that is why her level was low. We will trial the daily again and recheck vitamin-D in 6 months Assessment & Plan (10/23/2019 4:21 PM CDT): Will renew vitamin D weekly and have her add daily otc vitamin D [phone] international units'. Will recheck vitamin D level [...] Morbid obesity with BMI of 50.0-59.9, adult 12/02 Assessment & Plan (08/18/2021 5:35 PM CDT): [...] Uterine fibroid 07/01/2012 Overview (01/10/2019): Overview: 06.13.12- at [facility] = 8.5 x 10 x 8.2 cm. 07/01/2012: Two fibroids were noted: one right lateral measuring 10.3 x 10.1 x 8.0cm and the other right, posterior measuring 4.7 x 3.4 x 4.4cm. Resolved Problems Problem Noted Date Diagnosed Date Resolved Date Ventral hernia 11/02/2019 01/24/2020 Overview (11/02/2019): Added automatically from request for surgery [id number] Bronchitis 07/13/2017 01/10/2019 Assessment & Plan (07/13/2017 [...] Folliculitis 10/04/2015 01/18/2019 Overview (08/06/2016): Folliculitis Immunizations Immunization Administration Dates Next Due Influenza, Quadrivalent, Spl [...] Added automatica lly from request for surgery [id number] Family History Medical History Relation Name Comments [...] file Legal Sex Female 1:41 PM SENIOR SOFTWARE QA ENGINEER Gender Identity Not on file Sexual Orientation [...] g 9 9 KONSTANTIN SMITH BA BY PRINCE Matthew MD Delivery Location:[facility] 7 Term 39w 0d M Vag-S pont Livin g Last Filed Vital Signs Vital Sign Reading Time Taken Comments Blood Pressure 124/86 01/31/2024 11:38 AM CDT Pulse 85 01/31/2024 11:38 AM CDT Temperature 36.3 C (97.3 F) 01/31/2024 11:38 AM CDT Respiratory Rate 18 01/31/2024 11:38 AM CDT Oxygen Saturation 99% 01/31/2024 11:38 AM CDT Inhaled Oxygen Concentration - - Weight 137.9 kg (304 lb) 01/31/2024 11:38 AM CDT Height 170.2 cm (5' 7 ) 01/31/2024 11:38 AM CDT Body Mass Index 47.61 01/31/2024 11:38 AM CDT Plan of Treatment Health Maintenance Due Date Last Done Comments Colon Cancer Screening-Colonoscopy 1979 Varicella Vaccines (1 of 2 - 13+ [...] this topic Medical Devices Implanted Type Area Incident Coordinator Device Identifier Shelf Expiration Date Model / Serial / Lot [employer]ol Inc/C R Bard [id number] Ventralight St Sepra 4.5in Uncoated Monofilament Lightweight - [id number] Implanted:Qty: 1 on 01/12/2020 by Garland Donnelly MD at [facility] N/A: Abdomen [employer]/C R Bard 05/30/2021 [id number] / / [id number] Procedures Procedure Name Priority Date/Time Associated Diagnosis [...] SCREENING MAMMOGRAM HISTORY: Routine screening mammography. COMPARISON: 08/05/2022, 07/02/2021, 03/08/2020 TECHNIQUE: CC and MLO views of the bilateral breasts were obtained with digital technique using breast tomosynthesis with C view. Computer aided detection was utilized. FINDINGS: DENSITY: There are scattered fibroglandular elements in the bilateral breasts. BREASTS: There are no suspicious masses, suspicious calcifications, or other suspicious findings in either breast. There has been no suspicious interval change. Self Screening Mammogram IMG MAMMO PROCEDURES Fi nal Result * Pap and HPV, reflex to HPV Genotypes (08/27/2023 12:43 PM CDT) CLINICAL INFORMATION: [facility] Comment:Routine exam LMP [facility] Comment:HYSTERECTOMY Previous Pap [facility] Comment:NONE GIVEN Prev. Bx [facility] Comment:NONE GIVEN SOURCE: [facility] Comment:Vagina Pap, specimen adequacy [facility] Comment:SATISFACTORY FOR VIKA LUATION HPV interp [facility] Comment: Cytology Results: Negative for intraepithelial lesion or malignancy. COMMENTS [facility] Comment: This Pap test has been evaluated with computer assisted technology. Solar Sales Manager [facility] Comment: RICA, CT(ASCP) CT screening location: [place] [address] [place] [address] Comment [facility] Comment: EXPLANATORY NOTE: The Pap is a [...] High Risk E6/E7 Not Detected NOT DETECTED [facility] Comment: Not Detected High Risk HPV types (16,18,31,33,35,39,45,51,52, 56,58,59,66,68) were not detected. Other HPV types which cause anogenital lesions may be present. The significance of the other types of HPV in malignant processes has not been established. Methodology: Real Time PCR Thin prep 08/27/2023 12:4 3 PM CDT 08/28/2023 5:57 AM CDT Osiris Carvalho ELECTRIC FAN ASSEMBLER LAB CYTOLOGY ORDERABLES Final Re sult [facility] [address] [place] [address] [facility] [address] [facility] [place] [address] * Serum Hepatitis C ab (02/08/2016 3:51 AM CDT) HCV ab NON-REACTI VE NON-REACTI VE CDR HISTORICAL RESULTS Hepatitis signal to cutoff ratio 0.01 <1.00 CDR HISTORICAL RESULTS Serum 02/08/2016 3:51 AM CDT Narrative CDR HISTORICAL RESULTS - 02/11/2016 3:00 AM CDT Test performed at [facility] [place] [address] [place] [address] Director: MELVIN HOYT DO,MPH us Historical Provider LAB BLOOD ORDERABLES Aneta reilly Result CDR HISTORICAL RESULTS from Last 3 Months or Most Recently Relevant to Health Maintenance Insurance [employer] OOS [employer] Advance Directives For more information, please contact: [phone] * Full Code (Latest Code Status on File) Date Activated Date Inactivated Comments 04/05/2020 7:00 PM 04/06/2020 7:19 PM Care Teams Concrete Products Machine Operator Relationship Specialty Start Date End Date Elisabeth Self MD [address] [address] PCP - General 07/02/21
--- OUTSIDE RECORDS SUMMARY | 2024-07-09 12:43 | XMS_ITS | Referral Summary ---
Author Organization [facility] Address [address] [place] [address] Care Team Providers Care Wallpaper Embosser Helper Name Role Phone Elisabeth Self Primary Care [...] (02/15/2020): Added automatically from request for surgery [id number] Uterine leiomyoma 02/15/2020 Overview (02/15/2020): Added automatically from request for surgery [id number] History of gestational diabetes 01/10/2019 Vitamin D deficiency 01/10/2019 Assessment & Plan (01/24/2020 3:15 PM CDT): Will try changing back to vitamin-D once daily [id number]. She admits that sometimes she misses doses and she thinks that is why her level was low. We will trial the daily again and recheck vitamin-D in 6 months Assessment & Plan (10/23/2019 4:21 PM CDT): Will renew vitamin D weekly and have her add daily otc vitamin D [phone] international units'. Will recheck vitamin D level [...] fibroid 07/01/2012 Overview (01/10/2019): Overview: 06.13.12- at [facility] = 8.5 x 10 x 8.2 cm. 07/01/2012: Two fibroids were noted: one right lateral measuring 10.3 x 10.1 x 8.0cm and the other right, posterior measuring 4.7 x 3.4 x 4.4cm. 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 N/A: Abdomen [employer]/C R Bard 05/30/2021 [id number] / / [id number] Procedures Procedure Name Priority Date/Time Associated Diagnosis [...] Genotypes (08/27/2023 12:43 PM CDT) CLINICAL INFORMATION: [facility] Comment:Routine exam LMP [facility] Comment:HYSTERECTOMY Previous Pap [facility] Comment:NONE GIVEN Prev. Bx [facility] Comment:NONE GIVEN SOURCE: [facility] Comment:Vagina Pap, specimen adequacy [facility] Comment:SATISFACTORY FOR VIKA LUATION HPV interp [facility] Comment: Cytology Results: Negative for intraepithelial lesion or malignancy. COMMENTS [facility] Comment: This Pap test has been evaluated with computer assisted technology. Senior Health Educator [facility] Comment: RICA, CT(ASCP) CT screening location: [place] [address] [place] [address] Comment [facility] Comment: EXPLANATORY NOTE: The Pap is [...] High Risk E6/E7 Not Detected NOT DETECTED [facility] Comment: Not Detected High Risk HPV types (16,18,31,33,35,39,45,51,52, 56,58,59,66,68) were not detected. Other HPV types which cause anogenital lesions may be present. The significance of the other types of HPV in malignant processes has not been established. Methodology: Real Time PCR Thin prep 08/27/2023 12:4 3 PM CDT 08/28/2023 5:57 AM CDT Osiris Carvalho INTERIOR WALL ASSEMBLER LAB CYTOLOGY ORDERABLES Final Re sult [facility] [address] [facility] [address] [place] [address] [facility] [address] [facility] [place] [address] * Serum Hepatitis C ab (02/08/2016 3:51 AM CDT) HCV ab NON-REACTI VE NON-REACTI VE CDR HISTORICAL RESULTS Hepatitis signal to cutoff ratio 0.01 <1.00 CDR HISTORICAL RESULTS Serum 02/08/2016 3:51 AM CDT Narrative CDR HISTORICAL RESULTS - 02/11/2016 3:00 AM CDT Test performed at [facility] [place] [address] [place] [address] Director: MELVIN HOYT DO,MPH Historical Provider LAB BLOOD ORDERABLES Aneta reilly Result CDR HISTORICAL RESULTS from Last 3 Months or Most Recently Relevant to Health Maintenance Insurance [employer] O[employer] Advance Directives For more information, please contact: [phone] * Full Code (Latest Code Status on File) Date Activated Date Inactivated Comments 04/05/2020 7:00 PM 04/06/2020 7:19 PM Care Teams Wallpaper Embosser Helper Relationship Specialty Start Date End Date Elisabeth Self MD [address] [facility] [address] [facility] [address] PCP - General 07/02/21
--- OUTSIDE RECORDS SUMMARY | 2024-07-09 12:43 | XMS_ITS | Clinical Summary ---
Author Organization [facility] Address [address] [place] [address] Care Team Providers Care Telephone Surveyor Name Role Phone Elisabeth Self MD Primary Care Provider + Allergies Active Allergy Reactions Criticality Noted Date Comments Adhesive Tape-Silicones Rash Low 12/15/2021 Amoxicillin Rash Low 01/27/2021 Penicillins Anaphylaxis,Nausea and Vomiting,Swelling High 03/03/2016 throat closes off Reaction: Anaphylaxis, Unclassified Drug Itching Low 11/10/2021 Unsure if [...] (09/24/2023): Added automatically from request for surgery [id number] Vitamin D deficiency 01/10/2019 Overview (01/07/2022): Check levels today and adjust treatment plan accordingly pending results. Last Assessment & Plan: Will try changing back to vitamin-D once daily [id number]. She admits that sometimes she misses doses [...] 07/01/2012 Overview (09/24/2023): Overview: 06.13.12- US at [facility] = 8.5 x 10 x 8.2 cm. 07/01/2012: Two fibroids were noted: one right lateral measuring 10.3 x 10.1 x 8.0cm and the other right, posterior measuring 4.7 x 3.4 x 4.4cm. Added automatically from request for surgery [id number] 06.13.12- US at [facility] = 8.5 x 10 x 8.2 cm. 07/01/2012: Two fibroids were noted: one right lateral measuring 10.3 x 10.1 x 8.0cm and the other right, posterior measuring 4.7 x 3.4 x 4.4cm. Bariatric surgery status Resolved Problems Problem Noted Date Diagnosed Date Resolved Date Pre-existing type 2 diabetes mellitus during , antepartum 12/14/2022 09/24/2023 Encounters Date Type Department Care Team Description 06/09/2024 External Device Data ST[facility] ABSTRACTION Provider, Abstract 05/30/2024 Orders Only [address] [address] Elisabeth Self MD 05/26/2024 2:40 PM CASE ASSISTANT Office Visit [address] [address] Elisbaeth Self MD Upper respiratory tract infection, unspecified type (Primary Dx); Nummular eczema 05/25/2024 External Device Data ST[facility] ABSTRACTION Provider, Abstract 05/09/2024 External Device Data [facility] ABSTRACTION Provider, Abstract from Last 3 Months Immunizations Immunization Administration [...] Sex Assigned at Female 05/25/2024 8:46 AM CASE ASSISTANT Legal Sex Female 11:03 AM CDT Gender Identity Female 05/25/2024 8:46 AM CASE ASSISTANT Sexual Orientation Not on file Last Filed Vital Signs Vital Sign Reading Time Taken Comments Blood Pressure 118/78 05/26/2024 2:02 PM CASE ASSISTANT Pulse 74 05/26/2024 2:02 PM CASE ASSISTANT Temperature 36.7 C (98.1 F) 07/09/2023 1:59 PM CASE ASSISTANT Respiratory Rate 18 03/29/2024 7:55 AM CASE ASSISTANT Oxygen Saturation 98% 05/26/2024 2:02 PM CASE ASSISTANT Inhaled Oxygen Concentration - - Weight 141.7 kg (312 lb 6.4 oz) 05/26/2024 2:02 PM CASE ASSISTANT Height 170.2 cm (5' 7 ) 05/26/2024 2:02 PM CASE ASSISTANT Body Mass Index 48.93 05/26/2024 2:02 PM CASE ASSISTANT Plan of Treatment Upcoming Encounters Date Type Department Care Team (Late st Contact Info) Description 08/28/2024 9:20 AM CDT Office Visit [facility] Primary Care [address] [phone] Elisabeth Self MD [address] [place] [phone] Health Maintenance Due Date Last Done Comments DIABETES ANNUAL FOOT EXAM 1997 DIABETES ANNUAL RETINAL EXAM 1997 HEPATITIS B VACCINES (1 of 3 - 19+ 3-dose series) 1998 CERVICAL CANCER SCREENING 2009 DTAP/TDAP/TD VACCINES (2 - Td or Tdap) 10/30/2022 10/30/2012 INFLUENZA VACCINE (#1) 2023 02/15/2020 Preventative Visit- Commercial 05/03/2024 08/27/2023, 09/30/2022, 08/24/2022, Additional history exists COLORECTAL SCREENING 2024 Colorectal Cancer Screening 2024 FIT-DNA Q 3 years 2024 FIT/FOBT Q 1 year 2024 Flex Sig/CT Colonography Q 5 years 2024 LDL CHOLESTEROL ANNUAL 06/29/2024 4, 10/15/2022, 03/11/2022, [...] Procedure Name Priority Date/Time Associated Diagnosis Comments HEMOGLOBIN A1C Routine 03/28/2024 8:31 AM CASE ASSISTANT Morbid obesity with BMI of 50.0-59.9, adult ([facility]) Elevated blood sugar MICROALBUMIN/CREATIN INE RATIO, RANDOM UR Routine 12/17/2023 4:35 PM CDT Elevated blood sugar MAMMO SCREENING BILAT Routine 09/07/2023 11:46 AM CDT LIPID PANEL Routine 06/29/2023 7:40 AM CASE ASSISTANT Weight gain from Last 3 Months or Most Recently Relevant to Health Maintenance Results * HEMOGLOBIN A1C (03/28/2024 8:31 AM CASE ASSISTANT) HEMOGLOBIN A1C 5.6 <5.7 % of total Hgb [facility] Comment: For the purpose of screening for the presence of diabetes: <5.7% Consistent with the absence of diabetes 5.7-6.4% Consistent with increased risk for diabetes (prediabetes) > or =6.5% Consistent with diabetes This assay result is consistent with a decreased risk of diabetes. Currently, no consensus exists regarding use of hemoglobin A1c for diagnosis of diabetes in children. According to [place] Diabetes Association (ADA) guidelines, hemoglobin A1c <7.0% represents optimal control in non- diabetic patients. Different metrics may apply to specific patient populations. Standards of Medical Care in Diabetes(ADA). ESTIMATED AVERAGE GLUCOSE (MG/DL) 114 mg/dL [facility] ESTIMATED AVERAGE GLUCOSE (MMOL/L) 6.3 mmol/L [facility] Comment: FASTING:YES FASTING: YES Test Performed at: [facility] [place] [address] [place] [place] [address] Mirian Reynoso Blood 03/28/2024 8:31 AM CASE ASSISTANT 03/28/2024 8:31 AM CASE ASSISTANT Elisabeth Self MD CHEMISTRY ORDERABLES Fin al Result [facility] [phone] [facility] [place] [address] [place] [address] * MICROALBUMIN/CREATININE RATIO, RANDOM UR (12/17/2023 4:35 PM CDT) Creatinine, Urine 243 20 - 275 mg/dL [facility] MICROALBUMIN, URINE 0.7 See Note: mg/dL [facility] Comment: Reference Range: Reference Range Not established MICROALBUMIN/CREAT RATIO, UR 3 <30 mg/g creat [facility] Comment: The ADA defines abnormalities in albumin excretion as follows: Albuminuria Category Result (mg/g creatinine) Normal to Mildly increased <30 Moderately increased 30-299 Severely increased > OR = 300 The ADA recommends that at least two of three specimens collected within a 3-6 month period be abnormal before considering a patient to be within a diagnostic category. Test Performed at: [email or web address] [id number] [facility] [place] [address] Mirian Reynoso MD Urine URINE SPECIMEN OBTAINED BY CLEAN CATCH PROCEDURE / Unknown 12/17/2023 4:35 PM CDT 12/18/2023 5:41 AM CDT Elisabeth Self MD URINE ORDERABLES Final R esult [facility] [phone] [email or web address] [id number] [facility] [place] [address] * MAMMO SCREENING BILAT (09/07/2023 11:46 AM CDT) Anatomical Region Laterality Modality Breast Bilateral Other us Abstract Provider MAMMO ORDERABLES Final Result * (ABNORMAL) LIPID PANEL (06/29/2023 7:40 AM CASE ASSISTANT) CHOLESTEROL 104 <200 mg/dL [facility] HDL 28(L) > OR = 50 mg/dL [facility] TRIGLYCERIDE 68 <150 mg/dL [facility] LDL CALCULATED 62 mg/dL (calc) [facility] Comment: Reference range: <100 Desirable range <100 mg/dL for primary prevention; <70 mg/dL for patients with CHD or diabetic patients with > or = 2 CHD risk factors. LDL-C is now calculated using the Zia-Jennifer calculation, which is a validated novel method providing better accuracy than the Friedewald equation in the estimation of LDL-C. Zia SS et al. KENNETH. 2013;310(19): 7844-8401 (http://education.[employer]faq/UIF182) CHOL/HDL RATIO 3.7 <5.0 (calc) [facility] TOTAL NON-HDL CHOL(LDL+VLDL) 76 <130 mg/dL (calc) [facility] Comment: For patients with diabetes plus 1 major ASCVD risk factor, treating to a non-HDL-C goal of <100 mg/dL (LDL-C of <70 mg/dL) is considered a therapeutic option. Test Performed at: [email or web address] [id number] [facility] [place] [address] Mirian Reynoso MD Blood 06/29/2023 7:40 AM CASE ASSISTANT 06/29/2023 7:40 AM CASE ASSISTANT Elisabeth Self MD CHEMISTRY ORDERABLES Fin al Result [facility] [phone] [facility] [address] [place] [address] from Last 3 Months or Most Recently Relevant to Health Maintenance Insurance [employer] BLUE PREFERRED RX [employer] RX Member Subscriber Plan / Payer (Ef fective 2021-Present) Name:Juliette Elizabeth Relation to Subscriber:Self Name:Elizabeth Juliette K Subscriber ID:Not on file Payer ID:Not on file Type:RX Commercial Address: [address] Advance Directives For more information, please contact: [phone] * Full Code (Latest Code Status on File) Date Activated Date Inactivated Comments 12/09/2021 4:48 PM 12/10/2021 1:59 PM * Full Code Date Activated Date Inactivated Comments 09/10/2021 1:02 PM 09/10/2021 4:51 PM Care Teams Telephone Surveyor Relationship Specialty Start Date End Date Elisabeth Self MD [address] [place] [phone] PCP - General Family Practice 01/27/21
--- OUTSIDE RECORDS SUMMARY | 2024-07-09 12:43 | XMS_ITS | Encounter Summary ---
Author Organization [facility] Address [address] [place] [address] Care Team Providers Care Hazard Waste Handler Name Role Phone Elisabeth Self MD Primary Care Provider + Encounter Details Date Type Department Care Team (Late st Contact Info) Description 10/03/2012 Telephone [facility] - Diabetes Education [address] [place] [address] Charisma Bonilla, RN Social History Tobacco Use [...] on filedocumented in this encounter Care Teams Hazard Waste Handler Relationship Specialty Start Date End Date Elisabeth Self MD PCP - General Family Medicine 07/13/12 documented as of this encounter
--- OUTSIDE RECORDS SUMMARY | 2024-07-09 12:43 | XMS_ITS | Clinical Summary ---
Author Organization [facility] Address [address] [facility] [place] [address] Care Team Providers Care Call Center Manager Name Role Phone Elisabeth Self MD Primary Care Provider + Source Comments [facility],non-owned Affiliates and Associated Physician Practices is amultiple site organization consisting of ambulatory clinics and hospital sitesin [place], [place], [place] and [place]. This disclosure is being madepursuant to the Care Everywhere program and may not contain all information available regarding this patient. Last updated 18.[facility] Allergies No known active allergies Medications * [...] fibroid 07/01/2012 Overview (07/13/2012): 06.13.12- US at [facility] = 8.5 x 10 x [...] 90 10/31/2012 7:30 AM CDT Temperature 36.9 C (98.5 F) 10/31/2012 7:30 AM CDT Respiratory Rate 18 10/31/2012 7:30 AM CDT Oxygen Saturation 100% 10/29/2012 3:12 PM CDT Inhaled Oxygen Concentration - - Weight 125.6 kg (277 lb) 12/19/2012 8:32 AM CDT Height 170.2 cm (5' 7 ) 12/19/2012 8:32 AM CDT Body Mass Index 43.38 12/19/2012 8:32 AM CDT Plan of Treatment Health Maintenance Due Date Last Done Comments COLOGUARD (AGES 45-75) - COL ON CA SCREENING 1979 COLON MONITORING 1979 COLONOSCOPY - COLON CA SCREENING 1979 CT COLONOGRAPHY - COLON CA SCREENING 1979 Colorectal Cancer Screening 1979 FIT - COLON CA SCREENING 1979 FLEX SIG - COLON CA SCREENING 1979 LIPID TESTING 1979 MAMMOGRAM 1979 PAP SMEAR [...] 1:33 PM 10/30/2012 12:01 AM Care Teams Call Center Manager Relationship Specialty Start Date End Date Elisabeth Self MD PCP - General Family Medicine 07/13/12
--- OUTSIDE RECORDS SUMMARY | 2024-07-09 12:43 | XMS_ITS | Encounter Summary ---
Author Organization [facility] Address [address] [place] [address] Care Team Providers Care Toy Trains And Accessories Salesperson Name Role Phone Elisabeth Self MD Primary Care Provider + Reason for Visit * Reason Comments Needs Appointment Encounter Details Date Type Department Care Team ([facility] st Contact Info) Description 06/16/2023 Telephone [facility] [address] [phone] Elisabeth Self MD [address] [place] [phone] Needs Appointment Social History Tobacco Use Types Packs/Day Years Used Date Smoking Tobacco: Never Smokeless Tobacco: Never Alcohol Use Standard Drinks/Week Comments Not Currently 0 (1 standard drink = 0.6 oz pur e alcohol) Comments No Sex and Gender Information Value Date Recorded Sex Assigned at Female 05/25/2024 8:46 AM COOK LARDER Legal Sex Female 11:03 AM CDT Gender Identity Female 05/25/2024 8:46 AM COOK LARDER Sexual Orientation Not on file documented as of this encounter Miscellaneous Notes * Telephone Encounter - Beatrice Mcgraw RN - 06/17/2023 9:13 AM COOK LARDER I'm unsure of what labs will be due for her. LARDER * Telephone Encounter - Rosario Vasques - 06/16/2023 2:46 PM CST Copied from CRM #[id number]. Topic: Preventative Care >> Jun 16, 2023 2:43 PM Rosario Guo wrote: Caller is requesting preventative care appointment for: Physical Established [232] <<< Schedule Appointment >>> Call Notes: Patient also want to included labs. Patient also is requesting for an sooner appt.before November 03, 2023 Please advise [phone] (home) <<< Select Resolve Reason and Click Close CRM. >>> LARDER documented in this encounter Plan of Treatment Upcoming Encounters Date Type Department Care Team (Late st Contact Info) Description 08/28/2024 9:20 AM CDT Office Visit [facility] [address] [phone] Elisabeth Self MD [address] [place] [phone] documented as of this encounter Visit Diagnoses Not on filedocumented in this encounter Care Teams Toy Trains And Accessories Salesperson Relationship Specialty Start Date End Date Elisabeth Self MD [address] [place] [phone] PCP - General Family Practice 01/27/21 documented as of this encounter
--- OUTSIDE RECORDS SUMMARY | 2024-07-09 12:43 | XMS_ITS | Referral Summary ---
Author Organization [facility] [employer] Address [address] [place] [address] Care Team Providers Care Outfitter Cabin Name Role Phone Elisabeth Self MD Primary Care Provider + Source Comments [facility],non-owned Affiliates and Associated Physician Practices is amultiple site organization consisting of ambulatory clinics and hospital sitesin [place], [place], [place] and [place]. This disclosure is being madepursuant to the Care Everywhere program and may not contain all information available regarding this patient. Last updated 18.[facility] Allergies No known active allergies Medications * [...] fibroid 07/01/2012 Overview (07/13/2012): 06.13.12- [facility] at [facility] = 8.5 x 10 x 8.2 [...] 1:33 PM 10/30/2012 12:01 AM Care Teams Outfitter Cabin Relationship Specialty Start Date End Date Elisabeth Self MD PCP - General Family Medicine 07/13/12
--- OUTSIDE RECORDS SUMMARY | 2024-07-09 12:43 | XMS_ITS | Patient Health Summary ---
Author Organization [facility] Address [address] [place] [address] Care Team Providers Care Plow Mechanic Name Role Phone Elisabeth Self MD Primary Care Provider + Note from [facility],non-owned Affiliates and Associated Physician Practices is amultiple site organization consisting of ambulatory clinics and hospital sitesin [place], [place], [place] and [place]. This disclosure is being madepursuant to the Care Everywhere program and may not contain all information available regarding this patient. Last updated 18.[facility] Allergies No known active [...] Dose 50 Grams 12/19/2012 12:03 PM CDT [facility] GTT Fasting 100 mg/dL 12/19/2012 12:03 PM CDT [facility] GTT 1 Hour 164 mg/dL 12/19/2012 12:03 PM CDT [facility] GTT 2 Hour 115 mg/dL 12/19/2012 12:03 PM CDT [facility] Blood BLOOD SPECIMEN / Unknown Venipuncture / Unknown 12/19/2012 8:49 AM CDT 12/19/2012 9:20 AM CDT Ary Agee MD LAB - CHEMISTRY OR DERABLES Performing Organization Address City/State/[facility] Co de Phone Number [facility] [address] [place] [address] * IMAGING/RADIOLOGY/XRAY RESULTS ORDER (11/03/2012 2:37 PM CDT) Anatomical Region Laterality Modality Other Narrative 11/03/2012 2:37 PM CDT Procedure Note Document, Scanned - 11/03/2012 2:37 PM CDT Scanned Document IMAGING * GLUCOSE - POINT OF CARE (10/31/2012 6:07 AM CDT) Only the most recent of16 resultswithin the time period is included. Glucose WB/POC 96 70 - 106 mg/dL 10/31/2012 5:34 PM CDT [facility] Blood specimen (specimen) BLOOD SPECIMEN / Unknown 10/31/2012 6:07 AM CDT 10/31/2012 5:34 PM CDT Narrative [facility] - 10/31/2012 5:34 PM CDT GLYCEMIC PROTOCOL Chivo Coreas MD LAB - POINT OF CARE ORDERABLES Performing Organization Address City/[facility]/ZIP Co de Phone Number [facility] [address] [place] [address] * LAB HISTORICAL RESULTS-ONBASE (10/31/2012) 10/31/2012 Narrative [facility] - 11/01/2012 8:56 AM CDT Historical Provider LAB - CHEMISTRY O RDERABLES Performing Organization Address City/[facility]/ZIP Co de Phone Number [facility] [address] * (ABNORMAL) CBC W AUTO DIFFERENTIAL (10/30/2012 6:49 AM CDT) Only the most recent of2 resultswithin the time period is included. WBC 19.3(H) 4.4 - 10.7 x10^9/L 10/30/2012 6:59 AM CDT [facility] RBC 3.58(L) 3.80 - 5.20 x10^12/L 10/30/2012 6:59 AM CDT [facility] Hemoglobin 11.2(L) 12.0 - 15.6 g/dL 10/30/2012 6:59 AM CDT [facility] Hematocrit 32.6(L) 35.9 - 45.5 % 10/30/2012 6:59 AM CDT [facility] MCV 91.1 80.7 - 98.3 fl 10/30/2012 6:59 AM CDT [facility] MCH 31.3 26.7 - 34.0 pg 10/30/2012 6:59 AM CDT [facility] MCHC 34.4 30.8 - 35.9 gm/dL 10/30/2012 6:59 AM CDT [facility] Platelet Count 131(L) 153 - 416 x10^9/L 10/30/2012 6:59 AM CDT [facility] RDW-CV 13.4 12.1 - 14.9 % 10/30/2012 6:59 AM CDT [facility] MPV 12.2 9.4 - 12.9 fl 10/30/2012 6:59 AM CDT [facility] Neutrophils % 85(H) 44 - 73 % 10/30/2012 6:59 AM CDT [facility] Lymphocytes % 8(L) 20 - 43 % 10/30/2012 6:59 AM T [facility] Monocytes % 6 5 - 13 % 10/30/2012 6:59 AM T [facility] Eosinophils % 0 0 - 6 % 10/30/2012 6:59 AM CDT [facility] Basophils % 0 0 - 2 % 10/30/2012 6:59 AM T [facility] Immature Granulocytes 0.5 0 - 1 % 10/30/2012 6:59 AM T [facility] Neutrophil Absolute 16.47(H) 2.01 - 7.14 x10^9/L 10/30/2012 6:59 AM CDT [facility] Lymphocytes Absolute 1.54 1.07 - 3.94 x10^9/L 10/30/2012 6:59 AM CDT [facility] Monocytes Absolute 1.16(H) 0.26 - 1.07 x10^9/L 10/30/2012 6:59 AM T [facility] Eosinophils Absolute 0.04 0 - 0.47 x10^9/L 10/30/2012 6:59 AM T [facility] Basophils Absolute 0.01 0 - 0.08 x10^9/L 10/30/2012 6:59 AM T [facility] Immature Granulocytes Absolute 0.09(H) 0.00 - 0.06 x10^9/L 10/30/2012 6:59 AM T [facility] nRBC Auto 0 10/30/2012 6:59 AM T [facility] Blood specimen (specimen) BLOOD SPECIMEN / Unknown Lab Venipuncture / Unknown 10/30/2012 6:49 AM CDT 10/30/2012 6:55 AM CDT Wyatt Rocha MD LAB - HEMATOLOGY ORD ERABLES [facility] [address] [place] [address] * BLOOD GASES CORD VENOUS (10/29/2012 8:36 PM CDT) pH Cord Venous 7.40 7.28 - 7.40 pH 10/29/2012 8:52 PM T [facility] pCO2 Cord Venous 40 35 - 45 mm hg 10/29/2012 8:52 PM CDT [facility] pO2 Cord Venous 22 22 - 33 mm hg 10/29/2012 8:52 PM CDT [facility] HCO3 Cord Venous 24 22 - 24 mmol/L 10/29/2012 8:52 PM CDT [facility] BE Cord Venous -1.0 mmol/L 10/29/2012 8:52 PM CDT [facility] O2 Saturation Cord Venous 38 % 10/29/2012 8:52 PM CDT [facility] Mode Unknown 10/29/2012 8:52 PM CDT [facility] Carloz's Test N/A 10/29/2012 8:52 PM CDT [facility] Sample Site [facility] 10/29/2012 8:52 PM CDT [facility] Sample Type Cord Blood Venous 10/29/2012 8:52 PM CDT [facility] Canvas Worker Apprentice ID [id number] 10/29/2012 8:52 PM CDT [facility] Notified Who nurse 10/29/2012 8:52 PM CDT [facility] Notification Time 10/29/2012 20:51 10/29/2012 8:52 PM CDT [facility] Notified By 10/29/2012 8:52 PM CDT [facility] Blood specimen (specimen) CORD BLOOD SPECIMEN / Unknown 10/29/2012 8:36 PM CDT 10/29/2012 8:36 PM CDT Wyatt Rocha MD LAB - BLOOD GASES OR DERABLES Performing Organization Address City/State/[facility] Co de Phone Number [facility] [address] [place] [address] * ANESTHESIA BLOCK PERF (10/29/2012 2:59 PM CDT) Sherry Ochoa CRNA - 10/29/2012 2:59 PM CDT Sherry Gaspar CRNA 10/29/2012 2:59 PM Epidural . Location: L4-5 Preanesthetic Checklist Completed: patient identified, IV checked, site marked, risks and benefits discussed, surgical consent, monitors and equipment checked, pre-op evaluation, timeout performed and questions answered / anesthesia plan accepted Epidural . Position for procedure: sitting Prep: sterile gloves, cap, mask, sterile field established, kit and supplies assembled on sterile field and skin prepped with Betadine. Needle: 18 G Tuohy Needle insertion depth: 9 cmLocation: L4-5 Injection technique: loss of resistance and catheter Catheter at skin depth: 14 cm Additional response: Test dose 1.5 % Lidocaine with epinephrine 3 ml--negative Ropivicaine 0.2% incremental bolus for total of 8 ml Response to Block: Anesthesia level achieved: T10 Start time: 10/29/2012 2:44 PM End time: 10/29/2012 2:51 PM Anesthesia level achieved: [id number] response: Test dose 1.5 % Lidocaine with epinephrine 3 ml--negative Ropivicaine 0.2% incremental bolus for total of 8 ml Patient Care after Block: Instructions to patient: DIETICIAN use, expected sensory deficits and activity restrictions [...] time: 10/29/2012 2:51 PM Anesthesia level achieved: [id number] response: Test dose 1.5 %Lidocaine with epinephrine 3 ml--negative Ropivicaine 0.2% incremental bolus for total of 8 ml Patient Care after Block: Instructions to patient: DIETICIAN use, expected sensory deficits and activityrestrictions Additional Notes: Post epidural, supine with tilt Sherry Gaspar GAMING INVESTIGATOR-JUKEBOX ROUTE DRIVER GENERAL ANES THESIA ORDERABLES * BLOOD TYPE VERIFICATION (10/28/2012 4:59 PM CDT) ABO O 10/28/2012 6:25 PM CDT [facility] Rh Type Positive 10/28/2012 6:25 PM CDT [facility] Miscellaneous samples (specimen) BLOOD SPECIMEN / Unknown Venipuncture / Unknown 10/28/2012 4:59 PM CDT 10/28/2012 5:05 PM CDT Chivo Coreas MD LAB - BLOOD BANK ORD ERABLES [facility] * TYPE + SCREEN PANEL (10/28/2012 2:19 PM CDT) ABO O 10/28/2012 3:30 PM CDT [facility] Rh Type Positive 10/28/2012 3:30 PM CDT [facility] Antibody Screen Negative 3 3:30 PM CDT [facility] Comment:No historical blood type. Retype required. Miscellaneous samples (specimen) BLOOD SPECIMEN / Unknown Venipuncture / Unknown 10/28/2012 2:19 PM CDT 10/28/2012 2:35 PM CDT Vy Milan MD LAB - BLOOD BANK ORD ERABLES [facility] * GLUCOSE PROTEIN KETONE URINE - POINT OF CAR (10/27/2012 9:34 AM CDT) Only the most recent of6 resultswithin the time period is included. Glucose UA neg Negative [facility] POCT TESTING Protein UA neg Negative [facility] POCT TESTING Ketone UA neg Negative [facility] POCT TESTING QC Verified yes Yes [facility] POC T TESTING Urine specimen (specimen) URINE / Unknown 10/27/2012 9:34 AM CDT Wyatt Rocha MD LAB - POINT OF CARE ORDERABLES [facility] POCT TESTING [address] [place] [address] * SONOGRAM - COMPLETE (10/27/2012 8:49 AM CDT) Only the most recent of6 resultswithin the time period is included. Anatomical Region Laterality Modality Other 10/27/2012 8:49 AM CDT Narrative 10/28/2012 6:53 AM CDT [facility] PHONE: FAX: Sana. Name: JONAS WAGGONER Sana. No: [id number] Study Date: 10/27/2012 8:49am , Age: 02 1980, 32 Pregnancies: 1, Para 0 LMP: 01/30/2012 GA by LMP: 38w5d GA by 1st: 38w5d GA by US: 38w0d GA Selected: 38w5d (LMP) CARLYN: 11/05/2012 Referring MD: [facility] Review Consultant: Liss Neri RDMS Hist/Ind: Gestational Diabetes MEASUREMENTS & AGE GROWTH EVALUATION Measurement GA Range Srce %for GA Ratios ----- ---- ------- BPD 9.4 cm 38w1d (07r0i-85g4p) Hadl BPD 42% FL/BPD 0.81 (0.71 - 0.87) HC 33.1 cm 37w5d (52r8y-28o7s) Hadl HC 33% FL/AC 0.22 (0.20 - 0.24) AC 34.2 cm 38w1d (28h5n-29m2g) Hadl AC 41% HC/AC 0.97 (0.90 - 1.09) FL 7.6 cm 38w6d (44b7j-77c2r) Hadl FL 52% CI 0.81 (0.70 - 0.86) HL 6.4 cm 37w2d (02l7s-22y8y) Neptali HL 28% GA for sonogram 38w0d (75g6e-49m1m) Weight Estimate: based on (HL,BPD,HC,AC,FL) Avg Weight: 3435 gm (7953-3160) Hadlo : 7lbs, 9oz Normal: 3128 gm (4356-3766) Brenn Wt% 71% for 38.7 wks Heart Rate: 155.0 bpm Amniotic Fluid Index: 14.8 (07.2-23.0) Q1: 0.9 Q2: 3.2 Q3: 5.8 Q4: 4.9 Biophysical Profile: 02/09 Breathin Tone: 2 NST: 2 Movement: 2 AFV: 2 CLINICAL SUMMARY Study Number: 10 A sharma fetus is identified in cephalic presentation. The measurements today are consistent with appropriate growth compared to previous examination. The CARLYN selected is based on her LMP and a prior ultrasound examination. The amniotic fluid volume is within normal limits. The placenta is posterior, Grade 2. TESTING The Biophysical profile score is 10/10. IMPRESSION: Single, live, IUP at 38w5d size consistent with established CARLYN. Reassuring testing RECOMMEND: Twice weekly NST Repeat ultrasound as clinically indicated. Thank you for allowing us the opportunity to care for your patient. Emili Horner MD <Electronic Signature> 10/28/2012 06:53am Isis Ross MD M ORDERABLES * BIOPHYSICAL PROFILE W NST (10/20/2012 4:08 PM CDT) Only the most recent of3 resultswithin the time period is included. Anatomical Region Laterality Modality Other 10/20/2012 4:08 PM CDT Narrative 10/20/2012 4:57 PM CDT [facility] PHONE: FAX: Sana. Name: JONAS WAGGONER Sana. No: [id number] Study Date: 10/20/2012 4:08pm , Age: 02 1980, 32 Pregnancies: 1, Para 0 LMP: 01/30/2012 GA by LMP: 37w5d GA by 1st: 37w5d Referring MD: [facility] Review Consultant: Kaleb Quiros RDMS Hist/Ind: Gestational Diabetes Heart Rate: 148.0 bpm Amniotic Fluid Index: 10.1 CLINICAL SUMMARY Study Number: 9 (2 of 2) A sharma fetus is identified in cephalic presentation. The placenta is posterior, Grade 2. The amniotic fluid volume is within normal limits. No major malformations are seen. IMPRESSION: 1. Single, live, IUP at 37w5d. 2. Normal amniotic fluid volume 3. Reassuring testing RECOMMEND: 1. Continue weekly testing as clinically indicated. 2. Follow up ultrasound as clinically indicated. Thank you for allowing us the opportunity to care for your patient. Tyrone Cooper MD <Electronic Signature> 10/20/2012 04:57pm Young Bonilla MD [facility] ORDERABLES * SONOGRAM - LIMITED (10/20/2012 3:29 PM CDT) Only the most recent of3 resultswithin the time period is included. Anatomical Region Laterality Modality Other 10/20/2012 3:29 PM CDT Narrative 10/20/2012 4:57 PM CDT [facility] PHONE: FAX: Sana. Name: JONAS WAGGONER Pat. No: [id number] Study Date: 10/20/2012 3:29pm , Age: 02 1980, 32 Pregnancies: 1, Para 0 LMP: 01/30/2012 GA by LMP: 37w5d GA by 1st: 37w5d GA Selected: 37w5d (LMP) CARLYN: 11/05/2012 Referring MD: KATHIA Review Consultant: Kaleb Quiros RDMS Hist/Ind: Gestational Diabetes Heart Rate: 148.0 bpm Amniotic Fluid Index: 10.1 (07.4-24.1) Q1: 1.4 Q2: 2.5 Q3: 1.5 Q4: 4.7 Biophysical Profile: 02/09 Breathin Tone: 2 NST: 2 Movement: 2 AFV: 2 CLINICAL SUMMARY Study Number: 9 (1 of 2) TESTING The Biophysical profile score is 10/10. IMPRESSION: 1. Single, live, IUP at 37w5d. 2. Normal amniotic fluid volume 3. Reassuring testing RECOMMEND: 1. Continue weekly testing as clinically indicated. 2. Follow up ultrasound as clinically indicated. Thank you for allowing us the opportunity to care for your patient. Tyrone Cooper MD <Electronic Signature> 10/20/2012 04:57pm Young Bonilla MD [facility] ORDERABLES * CULTURE STREP B (10/13/2012 11:53 AM CDT) Pathologist [facility] Culture Negative for Beta Hemolytic Streptococcus Group B 10/16/2012 6:57 AM CDT [facility] Miscellaneous samples (specimen) ENTIRE ENDOCERVIX / Unknown Collection / Unknown 10/13/2012 11:53 AM CDT 10/13/2012 1:44 PM CDT Dolores López MD LAB - MICROBIOLOGY ORDERABLES [facility] [address] [facility] [place], [place] [address] * (ABNORMAL) URINALYSIS ROUTINE W/REFLEX TO CULTURE (07/25/2012 2:48 PM CDT) Color UA Yellow Straw, Yellow, Dark Yellow 07/25/2012 3:17 PM CDT [facility] Clarity UA Cloudy (none) 07/25/2012 3:17 PM CDT [facility] Specific [place] UA 1.015 1.005 - 1.030 07/25/2012 3:17 PM CDT [facility] pH UA 6.0 5.0 - 8.0 07/25/2012 3:17 PM CDT [facility] Protein UA Negative Negative 07/25/2012 3:17 PM CDT [facility] Blood UA Negative Negative 07/25/2012 3:17 PM CDT [facility] Leukocyte UA 2+(A) Negative 07/25/2012 3:17 PM CDT [facility] Nitrite UA Negative Negative 07/25/2012 3:17 PM CDT [facility] Glucose UA Negative Negative 07/25/2012 3:17 PM CDT [facility] Ketone UA Negative Negative 07/25/2012 3:17 PM CDT [facility] Bilirubin UA Negative Negative 07/25/2012 3:17 PM CDT [facility] Urobilinogen UA 0.2 0.1 - 1.0 EU/dL 07/25/2012 3:17 PM CDT [facility] WBC UA Auto 10-20(A) 0-2, 2-5 #/hpf 07/25/2012 3:17 PM CDT [facility] RBC UA Auto 5-10(A) 0-2, 2-5 #/hpf 07/25/2012 3:17 PM CDT [facility] Epithelial Cell UA Auto 5-10(A) 0-2, 2-5 #/hpf 07/25/2012 3:17 PM CDT [facility] Bacteria UA Auto 2+(A) None seen 07/26/19 13 3:17 PM CDT [facility] Hyaline Casts UA Auto 0-2(A) None seen #/lpf 07/25/2012 3:17 PM CDT [facility] Reflex Status Culture to follow (none) 07/25/2012 3:17 PM CDT [facility] Urine specimen (specimen) URINE SPECIMEN OBTAINED BY CLEAN CATCH PROCEDURE / Unknown 07/25/2012 2:48 PM CDT 07/25/2012 2:55 PM CDT Jonas Cam MD LAB - URINAL YSIS ORDERABLES [facility] [address] [place] [address] * CULTURE URINE (07/25/2012 2:48 PM CDT) Culture 10,000-50,000 CFU/mL normal urogenital fabricio 07/27/2012 9:24 AM CDT [facility] Urine specimen (specimen) URINE SPECIMEN OBTAINED BY CLEAN CATCH PROCEDURE / Unknown 07/25/2012 2:48 PM CDT 07/25/2012 2:55 PM CDT Jonas Cam MD LAB - MICROB IOLOGY ORDERABLES [facility] [address] [place] Care Teams Plow Mechanic Relationship Specialty Start Date End Date Elisabeth Self MD PCP - General Family Medicine 07/13/12
[2024-07-09 12:46] VITALS: BP 139/57; PULSE 99; RESP 20; TEMP 37.7; O2SAT 100
[2024-07-09 13:43] LABS: Glucose Point of Care 110 mg/dl (65-105)
--- NOTE | 2024-07-09 14:08 | ED.GENADULT ---
HPI - General Adult General Chief complaint: Ear Stated complaint: ear infection Source: patient Mode of arrival: ambulatory Limitations: no limitations History of Present Illness HPI narrative: Patient presents for evaluation of right ear pain since yesterday. She also has sinus congestion and sensation of fluid in the ear. She denies any fever, chills nausea, vomiting, diarrhea, tinnitus, drainage from the ear, cough or SOB. She also has a pruritic rash to her right forearm and abdomen. No new lotions, soaps or detergents. She has an upcoming appt with dermatology this week. She was placed on two courses of oral steroids and also tried a topical steroid without improvement. Related Data Home Medications ?Medication ?Instructions ?Recorded ?Confirmed ?Last Taken ?Type ergocalciferol (vitamin D2) 1,250 1,250 unit PO DAILY 03/16/24 03/16/24 Unknown History mcg (50,000 unit) capsule Allergies Allergy/AdvReac Type Severity Reaction Status Date / Time amoxicillin Allergy Severe Swelling Verified 07/09/24 13:02 of Lip/Tongue/Throat Penicillins Allergy Severe Swelling Verified 07/09/24 13:02 of Lip/Tongue/Throat Review of Systems Review of Systems: CONSTITUTIONAL: Denies fever, chills, or sweats. EYES: Denies visual changes, redness, or discharge. ENT: Reports sinus congestion, right ear pain with sensation of fluid in the ear. Denies rhinorrhea or sore throat CARDIOVASCULAR: Denies chest pain, palpitations, or edema. RESPIRATORY: Denies cough or dyspnea. GASTROINTESTINAL: Denies abdominal pain, nausea, vomiting, or diarrhea. GENITOURINARY: Denies dysuria or hematuria. SKIN: Reports pruritic rash to abdomen and right upper extremity MUSCULOSKELETAL: Denies back pain, joint pain, or myalgia. NEUROLOGIC: Denies headache, numbness, dizziness, or weakness. PSYCHIATRIC: Denies anxiety or depression. [facility] Past Medical History Medical History Bronchitis Surgical History Surgical History H/O hernia repair H/O: hysterectomy S/P gastric sleeve procedure Family History Family History Mother Family history non-contributory Social History Social History Smoking status: Never smoker Alcohol intake: never Substance use: never Lack of Transportation: No Lack of Food: Never True Current Housing: I Have Housing Concerned About Future Housing: No Difficulty Paying Gas/Electric Bills: No Difficulty Paying for Meds: No Currently Unemployed: No Education: High School Diploma/GED Difficulty w/ Childcare or Family Care: No Living arrangements: alone Occupation/Education: occupation Additional occupation/education comments: [email or web address] Exam Narrative: GENERAL: Well-appearing, well-nourished, and in no acute distress. HEAD: Normocephalic, atraumatic. EYES: PERRLA and EOMI. ENT: Nares clear, no rhinorrhea or epistaxis. Mucous membranes moist. Oropharynx without tonsillar hypertrophy exudate or other lesions. Bilateral TMs are erythematous and bulging NECK: Supple. No adenopathy or masses. No carotid bruits or JVD CHEST: Clear to auscultation. No respiratory distress. No wheezes rales or rhonchi HEART: Regular rate and rhythm. No murmur heard. Normal peripheral pulses. ABDOMEN: Soft, nontender, nondistended, normal active bowel sounds. EXTREMITIES: Normal range of motion. No edema. SKIN: There are multiple annular erythematous is lesions to the right upper extremity and abdomen with overlying scaling NEURO: No focal deficits. Alert and oriented x3. PSYCH: Normal mood and affect. Course Course Emergency Course: This is a 44-year-old female who presented for evaluation of right-sided ear pain. She has evidence of otitis media on exam. She cannot tolerate penicillins. Will avoid cephalosporin due to potential cross reactivity in the setting of anaphylactic response to exposure. Will DC with doxycycline. In terms of her skin, this appears to be tinea. Will treat with ketoconazole. Keep appointment with dermatology. Follow-up with primary provider. Go to the ER for worsening symptoms. Patient in agreement with plan of care. Level of Care: Express Care Visit Vital Signs Vital signs: Vital Signs Temperature 37.7 C H 07/09/24 12:46 Pulse Rate 99 07/09/24 12:46 Respiratory Rate 20 07/09/24 12:46 Blood Pressure 139/57 L 07/09/24 12:46 Pulse Oximetry 100 07/09/24 12:46 Oxygen Delivery Room Air 07/09/24 12:46 Temperature 37.7 C H 07/09/24 12:46 Pulse Rate 99 07/09/24 12:46 Respiratory Rate 20 07/09/24 12:46 Blood Pressure 139/57 L 07/09/24 12:46 Pulse Oximetry 100 07/09/24 12:46 Oxygen Delivery Room Air 07/09/24 12:46 Medical Decision Making Vital Signs Vital Signs: Vital Signs Temperature 37.7 C H 07/09/24 12:46 Pulse Rate 99 07/09/24 12:46 Respiratory Rate 20 07/09/24 12:46 Blood Pressure 139/57 L 07/09/24 12:46 Pulse Oximetry 100 07/09/24 12:46 Oxygen Delivery Room Air 07/09/24 12:46 Temperature 37.7 C H 07/09/24 12:46 Pulse Rate 99 07/09/24 12:46 Respiratory Rate 20 07/09/24 12:46 Blood Pressure 139/57 L 07/09/24 12:46 Pulse Oximetry 100 07/09/24 12:46 Oxygen Delivery Room Air 07/09/24 12:46 Lab Data Labs: Lab Results 07/09/24 Range/Units 13:40 POC Capillary Glucose 110 H (65-105) mg/dl Discharge Plan Discharge Clinical Impression: Otitis media, Tinea corporis Patient Disposition: Home, Self-Care Condition: Stable Instructions: Antibiotic Form, Tinea Corporis (ED), Ear Infection (AC) Patient Language: Ni[place] Prescriptions: New doxycycline hyclate 100 mg capsule 100 mg PO BID Qty: 20 0RF ketoconazole 2 % cream 1 applic topical BID Qty: 60 0RF No Action ergocalciferol (vitamin D2) 1,250 mcg (50,000 unit) capsule 1,250 unit PO DAILY Follow-up/Referrals: Otf Johnson MD [Physician] - Time of Disposition: 14:07
== END 2024-07-09 14:10 | disposition home or self-care (01) ==
PROVIDERS: Emergency Provider Nurse Practitioner
DX: H66.93 Otitis media, unspecified, bilateral (principal); B35.4 Tinea corporis; Z98.84 Bariatric surgery status
CPT/HCPCS: 82948; 99213; G0463